=== PATIENT | male | born 1930 | race Caucasian/White ===

== ENCOUNTER 2017-02-22 12:07 | Emergency (ER) | payer OTHER ==
[~2017-02-22] VITALS: Ht 167.6 cm; Wt 73.5 kg
[~2017-02-22 12:07] MED LIST: CALCIUM 600 +1 EAC5 PO; FLONASE 0.05%50 MCG NASAL; GLIPIZIDE XL2.5 MG PO; GLUCOSAMINE CH1 EAC7 PO; HYDROCHLOROTH12.5 MG PO; IBUPROFEN 600600 M1 PO; IRON PO; LEVOTHYROXINE0.05 MG PO; LISINOPRIL20 MG PO; NEURONTIN 300300 M1 PO; NORCO 5-325 TA1 EACH PO; OCUVITE PRESER1 EACH PO; OMEPRAZOLE40 MG PO; POTASSIUM99 M1 PO; PRINZIDE 20-121 EACH PO; SIMVASTATIN20 MG PO; SUPER B-COMPLE1 EAC2 PO; VICODIN 5-5001 EACH PO; VITAMIN B-12100 MC1 PO; VITAMINC500 PO
[2017-02-22] MEDS ORDERED: PLAVIX 75 MG TA75 M1 PO (12:21)
[2017-02-22] MEDS ORDERED: NORCO 5-325 TA1 EACH PO (12:47)
[2017-02-22 13:16] VITALS: BP 181/86
== END 2017-02-22 12:48 | disposition home or self-care (01) ==
LOC: ER 12:07
DX: S42.292A Other displaced fracture of upper end of left humerus, initial encounter for closed fracture (principal); I10 Essential (primary) hypertension; E11.9 Type 2 diabetes mellitus without complications; K21.9 Gastro-esophageal reflux disease without esophagitis; E78.00 Pure hypercholesterolemia, unspecified; E03.9 Hypothyroidism, unspecified; E11.40 Type 2 diabetes mellitus with diabetic neuropathy, unspecified; F10.99 Alcohol use, unspecified with unspecified alcohol-induced disorder; Z98.890 Other specified postprocedural states; Z87.891 Personal history of nicotine dependence; W01.0XXA Fall on same level from slipping, tripping and stumbling without subsequent striking against object, initial encounter; Y93.89 Activity, other specified; Y92.008 Other place in unspecified non-institutional (private) residence as the place of occurrence of the external cause; Y99.8 Other external cause status

== ENCOUNTER 2017-07-17 20:31 | Emergency (ER) | payer OTHER ==
[~2017-07-17] VITALS: Ht 167.6 cm; Wt 68.0 kg
[~2017-07-17 20:31] MED LIST changes: +PLAVIX 75 MG TA75 M1 PO
[2017-07-17 22:39] LABS: HEMATOCRIT 26.6 % (42.0-52.0); HEMOGLOBIN 8.9 gm/dL (14.0-18.0); MCH 32.6 pg (26.0-34.0); MCHC 33.6 g/dL (28.0-37.0); MCV 96.9 fL (80.0-100.0); RBC 2.75 mil/uL (4.50-6.00); RDW 15.3 % (10.5-14.5); WBC 16.8 thou/uL (4.0-11.0)
[2017-07-17 22:46] LABS: CALCIUM 9.1 mg/dL (8.5-10.1); CREATININE 2.1 mg/dL (0.7-1.3); POTASSIUM 5.1 mmol/L (3.5-5.1)
[2017-07-17 22:51] LABS: APTT 20.9 Seconds (24.5-32.8)
[2017-07-17] MEDS ORDERED: KEFLEX500 M1 PO (23:39)
[2017-07-18 00:07] VITALS: BP 154/71
== END 2017-07-18 00:08 | disposition home or self-care (01) ==
LOC: ER 20:31
PROVIDERS: Emergency Medicine
DX: R04.0 Epistaxis (principal); I10 Essential (primary) hypertension; K21.9 Gastro-esophageal reflux disease without esophagitis; E03.9 Hypothyroidism, unspecified; E78.00 Pure hypercholesterolemia, unspecified; E11.40 Type 2 diabetes mellitus with diabetic neuropathy, unspecified; G47.30 Sleep apnea, unspecified; G25.81 Restless legs syndrome; Z86.2 Personal history of diseases of the blood and blood-forming organs and certain disorders involving the immune mechanism; Z87.891 Personal history of nicotine dependence

== ENCOUNTER 2017-07-20 16:02 | Inpatient (IN) | payer OTHER ==
[~2017-07-20] VITALS: Ht 167.6 cm; Wt 70.8 kg
--- NOTE | ~2017-07-20 | EKG ---
[address] [address] ELECTROCARDIOGRAM REPORT Name: DALTONKIRBY DAWSON Room #: 358-P ADM IN M.R.#: [id number] Admission: 07/20/17 Attend Phys: Diony Jaquez Discharge: Date of : 34 Report #: [id number] THIS REPORT FOR: //name// [facility] ED Test Date: 2017-07-20 Test Time: 18:03:06 Pat Name: KIRBY HOFFMAN Department: Room: 358 Gender: M Psych Social Worker: LILLIAN : 1930 Requested By: Brian Zimmer Order Number: [id number] MD: Fidel Melara Measurements Intervals [place] Rate: 150 P: 0 ND: QRS: -60 QRSD: 103 T: 35 QT: 349 QTc: 552 Interpretive Statements Supraventricular tachycardia with conversion to NSR Abnormal R-wave progression, late transition Inferior infarct, old No previous ECG available for comparison Electronically Signed On 07-20-2017 23:08:30 BRUSH WORKER by Fidel Melara [email or web address] <ELECTRONICALLY SIGNED> By: Fidel Melara MD 07/20/17 2308 02 02 Fidel Melara MD /MORRIS
[~2017-07-20 16:02] MED LIST changes: +KEFLEX500 M1 PO
[2017-07-20 16:55] LABS: BASOPHILS 0.4 % (0.0-2.0); EOSINOPHILS 0.3 % (0.0-3.0); LYMPHOCYTES 13.1 % (24.0-44.0); MCH 32.6 pg (26.0-34.0); MCV 96.1 fL (80.0-100.0); MONOCYTES 9.3 % (1.0-8.0); POLYS 76.9 % (36.0-66.0); RBC 1.68 mil/uL (4.50-6.00); RDW 15.6 % (10.5-14.5); WBC 9.1 thou/uL (4.0-11.0)
[2017-07-20 16:56] LABS: PLATELET COUNT 287 thou/uL (150-400)
[2017-07-20 17:01] LABS: HEMATOCRIT 16.1 % (42.0-52.0); HEMOGLOBIN 5.5 gm/dL (14.0-18.0)
[2017-07-20 17:19] LABS: ANION GAP 12 mmol/L (7-16); BUN 75 mg/dL (7-18); CALCIUM 8.5 mg/dL (8.5-10.1); CHLORIDE 104 mmol/L (98-107); CO2 22 mmol/L (21-32); GLUCOSE 205 mg/dL (74-106); POTASSIUM 5.1 mmol/L (3.5-5.1); SODIUM 138 mmol/L (136-145)
[2017-07-20 17:21] LABS: CREATININE 3.4 mg/dL (0.7-1.3)
[2017-07-20 17:28] LABS: ALBUMIN 3.3 g/dL (3.4-5.0); SGOT 14 U/L (15-37); SGPT 18 U/L (30-65); TOTAL BILIRUBIN 0.2 mg/dL (<0.1-1.0); TOTAL PROTEIN 6.5 g/dL (6.4-8.2); TROPONIN-I < 0.04 ng/mL (<0.06)
[2017-07-20 18:51] LABS: HEMATOCRIT 15.7 % (42.0-52.0); HEMOGLOBIN 5.4 gm/dL (14.0-18.0)
[2017-07-20 19:45] VITALS: BP 168/83
[2017-07-20 20:10] VITALS: BP 111/49; BP 128/49
[2017-07-20 22:46] VITALS: BP 111/49; BP 128/53; BP 132/62
[2017-07-20 23:50] VITALS: BP 132/62
[2017-07-21 01:40] LABS: URINE BILIRUBIN NEGATIVE (Negative); URINE BLOOD NEGATIVE (Negative); URINE CLARITY CLEAR; URINE COLOR YELLOW; URINE GLUCOSE-RANDOM* NEGATIVE (Negative); URINE KETONES NEGATIVE (Negative); URINE LEUKOCYTES-REFLEX NEGATIVE (Negative); URINE NITRITE-REFLEX NEGATIVE (Negative); URINE PROTEIN (DIPSTICK) NEGATIVE (Negative); URINE SPECIFIC GRAVITY 1.015 (1.005-1.035); URINE UROBILINOGEN 0.2 E.U./dl (0.2-1.0)
[2017-07-21 04:45] VITALS: BP 119/63
[2017-07-21 05:53] LABS: HEMATOCRIT 20.5 % (42.0-52.0); HEMOGLOBIN 6.9 gm/dL (14.0-18.0); MCHC 33.8 g/dL (28.0-37.0)
[2017-07-21 05:57] LABS: MCH 31.7 pg (26.0-34.0); MCV 93.7 fL (80.0-100.0); RBC 2.19 mil/uL (4.50-6.00); RDW 15.1 % (10.5-14.5); WBC 6.5 thou/uL (4.0-11.0)
[2017-07-21 06:04] LABS: CALCIUM 7.7 mg/dL (8.5-10.1); POTASSIUM 4.6 mmol/L (3.5-5.1)
[2017-07-21 06:06] LABS: ALBUMIN 2.8 g/dL (3.4-5.0); PHOSPHORUS 3.9 mg/dL (2.5-4.9)
[2017-07-21 06:16] LABS: CREATININE 2.3 mg/dL (0.7-1.3)
[2017-07-21 08:03] VITALS: BP 147/37
[2017-07-21 10:28] VITALS: BP 137/53; BP 147/71
[2017-07-21 11:05] VITALS: BP 129/53
[2017-07-21 15:11] VITALS: BP 121/54
[2017-07-21 19:35] VITALS: BP 160/65
[2017-07-22 03:50] VITALS: BP 136/65
[2017-07-22 05:43] LABS: HEMATOCRIT 24.3 % (42.0-52.0); HEMOGLOBIN 8.5 gm/dL (14.0-18.0); MCH 32.2 pg (26.0-34.0); MCHC 34.9 g/dL (28.0-37.0); MCV 92.3 fL (80.0-100.0); RBC 2.63 mil/uL (4.50-6.00); RDW 15.2 % (10.5-14.5); WBC 5.7 thou/uL (4.0-11.0)
[2017-07-22 06:01] LABS: ALBUMIN 2.9 g/dL (3.4-5.0); CALCIUM 8.4 mg/dL (8.5-10.1); CREATININE 1.8 mg/dL (0.7-1.3); PHOSPHORUS 3.4 mg/dL (2.5-4.9); POTASSIUM 4.7 mmol/L (3.5-5.1)
[2017-07-22 08:00] VITALS: BP 186/80
[2017-07-22 15:45] VITALS: BP 177/86
[2017-07-22 16:18] VITALS: BP 177/86
== END 2017-07-22 16:36 | disposition home or self-care (01) | DRG 150 ==
LOC: ER 16:02 → EROBS 17:59 → 3W 17:59 → ENTRNSPT 07-22 16:30 → 3W 07-22 16:36
PROVIDERS: Emergency Medicine; Hospitalist
PROC: 30233N1 Transfusion of Nonautologous Red Blood Cells into Peripheral Vein, Percutaneous Approach (ICD-10-PCS; principal; 2017-07-20)
DX: R04.0 Epistaxis (principal); N17.0 Acute kidney failure with tubular necrosis; D62 Acute posthemorrhagic anemia; I47.1 Supraventricular tachycardia; I10 Essential (primary) hypertension; K21.9 Gastro-esophageal reflux disease without esophagitis; E03.9 Hypothyroidism, unspecified; D64.9 Anemia, unspecified; G25.81 Restless legs syndrome; E11.40 Type 2 diabetes mellitus with diabetic neuropathy, unspecified; Z98.42 Cataract extraction status, left eye; Z98.41 Cataract extraction status, right eye; Z87.891 Personal history of nicotine dependence; Z79.899 Other long term (current) drug therapy
CPT/HCPCS: 10779

== ENCOUNTER 2019-08-28 18:10 | Emergency (ER) | payer OTHER ==
[~2019-08-28] VITALS: Ht 167.6 cm; Wt 77.1 kg
[2019-08-28 20:55] LABS: URINE BILIRUBIN NEGATIVE (Negative); URINE BLOOD NEGATIVE (Negative); URINE CLARITY CLEAR; URINE COLOR YELLOW; URINE GLUCOSE-RANDOM* NEGATIVE (Negative); URINE KETONES NEGATIVE (Negative); URINE LEUKOCYTES-REFLEX TRACE (Negative); URINE NITRITE-REFLEX NEGATIVE (Negative); URINE PROTEIN (DIPSTICK) 2+ (Negative); URINE SPECIFIC GRAVITY >= 1.030 (1.005-1.035); URINE UROBILINOGEN 0.2 E.U./dl (0.2-1.0)
[2019-08-28 21:06] LABS: BACTERIA-REFLEX 1-9 Few /HPF (None Seen); CASTS None Seen /LPF (None Seen); CRYSTALS None Seen /LPF (None Seen); SQUAMOUS None Seen /LPF (0-3); URINE RBC None Seen /HPF (0-2); URINE WBC-REFLEX 6-15 Few /HPF (0-5)
[2019-08-28 21:07] LABS: ABSOLUTE NEUTROPHILS 5.5 thou/uL (1.4-8.2); BASOPHILS 0.7 % (0.0-2.0); EOSINOPHILS 0.8 % (0.0-3.0); HEMATOCRIT 34.5 % (42.0-52.0); HEMOGLOBIN 11.7 gm/dL (14.0-18.0); LYMPHOCYTES 18.5 % (24.0-44.0); MCH 31.5 pg (26.0-34.0); MCHC 33.8 g/dL (28.0-37.0); MCV 93.2 fL (80.0-100.0); MONOCYTES 11.7 % (1.0-8.0); PLATELET COUNT 343 thou/uL (150-400); POLYS 68.3 % (36.0-66.0); RBC 3.71 mil/uL (4.50-6.00); RDW 12.8 % (10.5-14.5); WBC 8.1 thou/uL (4.0-11.0)
[2019-08-28 21:20] LABS: CALCIUM 9.3 mg/dL (8.5-10.1); CREATININE 2.7 mg/dL (0.7-1.3); POTASSIUM 4.5 mmol/L (3.5-5.1)
[2019-08-28 21:25] LABS: TOTAL BILIRUBIN 0.2 mg/dL (<0.1-1.0); TOTAL PROTEIN 8.3 g/dL (6.4-8.2)
[2019-08-28] MEDS ORDERED: KEFLEX500 M1 PO (21:37)
[2019-08-28 21:47] VITALS: BP 127/67
[2019-08-28] MEDS ORDERED: LEVO-T75 MCG PO (21:50)
[2019-08-28] MEDS ORDERED: GLIPIZIDE ER2.5 MG PO (21:50)
[2019-08-28] MEDS ORDERED: PLAVIX 75 MG TA75 MG PO (21:51)
[2019-08-28] MEDS ORDERED: TRADJENTA5 MG (21:51)
[2019-08-28] MEDS ORDERED: MEMANTINE HCL10 MG PO (22:02)
[2019-08-28] MEDS ORDERED: DILTIAZEM 24HR180 M1 PO (22:03)
[2019-08-28] MEDS ORDERED: PANTOPRAZOLE SO40 M1 PO (22:03)
[2019-08-28] MEDS ORDERED: CILOSTAZOL 100100 M1 PO (22:03)
[2019-08-28] MEDS ORDERED: ATORVASTATIN CA20 MG PO (22:03)
[2019-08-28] MEDS ORDERED: ARICEPT10 M1 PO (22:03)
[2019-08-28] MEDS ORDERED: LISINOPRIL2.5 MG PO (22:04)
== END 2019-08-28 22:05 | disposition home or self-care (01) ==
LOC: ER 18:10
PROVIDERS: Emergency Medicine
DX: N39.0 Urinary tract infection, site not specified (principal); I10 Essential (primary) hypertension; E11.9 Type 2 diabetes mellitus without complications; E78.00 Pure hypercholesterolemia, unspecified; E03.9 Hypothyroidism, unspecified; K21.9 Gastro-esophageal reflux disease without esophagitis; G47.30 Sleep apnea, unspecified; G25.81 Restless legs syndrome; Z86.2 Personal history of diseases of the blood and blood-forming organs and certain disorders involving the immune mechanism; Z87.891 Personal history of nicotine dependence

== ENCOUNTER 2020-10-06 17:58 | Inpatient (IN) | payer OTHER ==
[~2020-10-06] VITALS: Ht 167.6 cm; Wt 72.8 kg
[~2020-10-06 17:58] MED LIST changes: +ARICEPT10 M1 PO; +ATORVASTATIN CA20 MG PO; +CILOSTAZOL 100100 M1 PO; +DILTIAZEM 24HR180 M1 PO; +GLIPIZIDE ER2.5 MG PO; +LEVO-T75 MCG PO; +LISINOPRIL2.5 MG PO; +MEMANTINE HCL10 MG PO; +PANTOPRAZOLE SO40 M1 PO; +PLAVIX 75 MG TA75 MG PO; +TRADJENTA5 MG
[2020-10-06 18:04] VITALS: BP 134/62
[2020-10-06] MEDS ORDERED: NAMENDA 10 MG T10 MG PO (18:53)
[2020-10-06 18:57] LABS: ABSOLUTE NEUTROPHILS 4.4 thou/uL (1.4-8.2); BASOPHILS 0.6 % (0.0-2.0); HEMATOCRIT 29.2 % (42.0-52.0); HEMOGLOBIN 9.9 gm/dL (14.0-18.0); LYMPHOCYTES 14.8 % (24.0-44.0); MCH 32.8 pg (26.0-34.0); MCHC 33.9 g/dL (28.0-37.0); MCV 96.7 fL (80.0-100.0); MONOCYTES 8.8 % (1.0-8.0); PLATELET COUNT 240 thou/uL (150-400); POLYS 73.8 % (36.0-66.0); RBC 3.02 mil/uL (4.50-6.00); RDW 14.3 % (10.5-14.5); WBC 5.9 thou/uL (4.0-11.0)
[2020-10-06] MEDS ORDERED: ALLOPURINOL 10100 M3 PO (18:57)
[2020-10-06 19:03] LABS: ANION GAP 16 mmol/L (7-16); BUN 76 mg/dL (7-18); CALCIUM 9.1 mg/dL (8.5-10.1); CHLORIDE 106 mmol/L (98-107); CO2 18 mmol/L (21-32); GLUCOSE 160 mg/dL (74-106); SODIUM 140 mmol/L (136-145)
[2020-10-06 19:07] LABS: POTASSIUM 6.1 mmol/L (3.5-5.1)
[2020-10-06 19:13] LABS: ALBUMIN 3.9 g/dL (3.4-5.0); SGOT 15 U/L (15-37); SGPT 25 U/L (16-63); TOTAL BILIRUBIN 0.3 mg/dL (0.2-1.0); TROPONIN-I <0.06 ng/mL (<0.06)
[2020-10-06 20:18] VITALS: BP 130/63
[2020-10-06 20:19] LABS: URINE BILIRUBIN NEGATIVE (Negative); URINE BLOOD NEGATIVE (Negative); URINE CLARITY CLEAR; URINE COLOR YELLOW; URINE GLUCOSE-RANDOM* NEGATIVE (Negative); URINE KETONES NEGATIVE (Negative); URINE LEUKOCYTES-REFLEX NEGATIVE (Negative); URINE NITRITE-REFLEX NEGATIVE (Negative); URINE PROTEIN (DIPSTICK) TRACE (Negative); URINE SPECIFIC GRAVITY 1.025 (1.005-1.035); URINE UROBILINOGEN 0.2 E.U./dl (0.2-1.0)
--- NOTE | 2020-10-06 20:30 | NUR ---
Called to give report but was told RN will call me soon
[2020-10-06 20:46] VITALS: BP 141/67
[2020-10-06 21:11] VITALS: BP 143/64
--- NOTE | 2020-10-06 23:17 | NUR ---
PT ADMITTED FROM [facility] TO ER FOR C/O SHAKINESS, S/P FALL AND WEAKNESS. DX ACUTE RENAL FAILURE, HYPERKALEMIA, AND ANEMIA. PT IS A&OX4 BUT VERY CITIZEN [place]. HEARING AIDES HELP SOMEWHAT. INSTUCTED PT ON FALL PRECAUTIONS. BED ALARM IS ON. HE AMBULATES TO WITH 1 PERSON ASSISTANCE. GAIT SEEMS STEADY AND NO SHAKINESS NOTED PRESENTLY. VSS AFEBRILE. SR ON MONITOR WITH 1' AVB. NO C/O PAIN. NS STARTED R FA AT 80 ML/HR. PT HAS HAD 1 LG LIQUID LOOSE STOOL AFTER KAYEXOLATE.
[2020-10-06 23:51] VITALS: BP 115/47
[2020-10-07] VITALS: BP 128/62
[2020-10-07 04:26] VITALS: BP 132/66
[2020-10-07 04:43] LABS: CALCIUM 8.2 mg/dL (8.5-10.1); CREATININE 3.6 mg/dL (0.7-1.3)
[2020-10-07 05:10] LABS: POTASSIUM 4.7 mmol/L (3.5-5.1)
--- NOTE | 2020-10-07 06:57 | EKG ---
[address] [place] [address] ELECTROCARDIOGRAM REPORT Name: KIRBY HOFFMAN Room #: 362-P ADM IN M.R.#: [id number] Admission: 10/06/20 Attend Phys: Gilles Malloy MD Discharge: Date of : 32 Report #: [id number] [facility] ED Test Date: 2020-10-06 Test Time: 19:10:49 Pat Name: KIRBY HOFFMAN Department: Room: 362 Gender: M Mechanical Research Engineer: BOBBY : 1930 Requested By: Preethi Greco Order Number: [id number] MD: Jasen Acosta Measurements Intervals [place] Rate: 68 P: 21 AK: 199 QRS: -50 QRSD: 100 T: 5 QT: 411 QTc: 438 Interpretive Statements Sinus rhythm Atrial premature complex Left anterior fascicular block Abnormal R-wave progression, early transition Compared to ECG 07/20/2017 18:03:06 Atrial premature complex(es) now present Left anterior fascicular block now present Supraventricular tachycardia no longer present Myocardial infarct finding no longer present Electronically Signed On 10-07-2020 6:57:18 CDT by Jasen Acosta [email or web address] <ELECTRONICALLY SIGNED> By: Jasen Acosta MD, [facility] 10/07/20 0657 09 09 Jasen Acosta MD, [facility] /EPI
[2020-10-07 07:06] VITALS: BP 130/62
[2020-10-07 07:29] VITALS: BP 157/69
--- NOTE | 2020-10-07 07:29 | NUR ---
PT PROGRESSING TOWARDS D/C GOALS. VSS AFEBRILE. NO SHAKING OR TREMORS NOTED TONIGHT. COMPLIANT WITH FALL PRECAUTIONS. BED ALARM IS ON. INSTRUCTED PT TO SAVE URINE IN URINAL FOR ACCURATE I&O.
--- NOTE | 2020-10-07 10:44 | NUR ---
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 denies any chest pain, nausea and vomitting pt taken down for renal ultrasound. pt uses urinal and up with 1 assist to bathroom. fall precautions in place. will continue to monitor.
[2020-10-07 11:28] LABS: URINE BILIRUBIN NEGATIVE (Negative); URINE BLOOD 2+ (Negative); URINE CLARITY CLEAR; URINE COLOR YELLOW; URINE GLUCOSE-RANDOM* NEGATIVE (Negative); URINE KETONES NEGATIVE (Negative); URINE LEUKOCYTES NEGATIVE (Negative); URINE NITRITE NEGATIVE (Negative); URINE PROTEIN (DIPSTICK) TRACE (Negative); URINE UROBILINOGEN 0.2 E.U./dl (0.2-1.0)
[2020-10-07 11:30] LABS: URINE CREATININE-RANDOM* 72.7 mg/dL; URINE PROTEIN-RANDOM* 31.2 mg/dL (<11.9)
--- NOTE | 2020-10-07 11:32 | 2DMMODE ---
[facility] [place] [address] 2 D/M-MODE ECHOCARDIOGRAM Name: KIRBY HOFFMAN Room #: 362-P ADM IN M.R.#: [id number] Admission: 10/06/20 Attend Phys: Cadence Lara MD Discharge: Date of : 32 Report #: [id number] THIS REPORT FOR: cc: MARKEL LANE Physician not on staff Ernst Manrique MD [facility] ~ APPROVED REPORT Study performed: 10/07/2020 10:26:20 EXAM: Comprehensive 2D, Doppler, and color-flow Echocardiogram Room #: 362 Status: routine BSA: 1.80 HR: 71 bpm BP: 130/62 mmHg Rhythm: NSR Other Information Study Quality: Good Indications Diabetes Syncope Hypertension/HDD 2D Dimensions RVDd: 33.57 mm IVSd: 9.83 (7-11mm) LVOT Diam: 21.48 (18-24mm) LVDd: 56.98 mm PWd: 10.12 (7-11mm) Ascending Ao: 32.84 (22-36mm) LVDs: 39.15 (25-40mm) Aortic Root: 34.63 mm IVC: 18.00 mm Volumes Left Atrial Volume (Systole) Single Plane 4CH: 46.88 mL Single Plane 2CH: 30.85 mL LA ESV Index: 22.00 mL/m2 Aortic Valve AoV Peak David.: 2.64 m/s AO Peak Gr.: 27.96 mmHg LVOT Max P.16 mmHg AO Mean Gr.: 15.65 mmHg LVOT Mean P.27 mmHg AO V2 Mean: 1.85 m/s LVOT Max V: 1.23 m/s AO V2 VTI: 63.20 cm LVOT Mean V: 0.83 m/s [facility] [address] [place] [address] 2 D/M-MODE ECHOCARDIOGRAM Name: KIRBY HOFFMAN Room #: 362-P [facility] IN ..#: [id number] Admission: 10/06/20 Attend Phys: Kristan Benites Discharge: Date of : 32 Report #: [id number] FABRIZIO (VTI): 1.65 cm2 LVOT V1 VTI: 28.84 cm FABRIZIO Vmax: 1.68 cm2 SV (LVOT): 104.50 mL Mitral Valve E/A Ratio: 0.8 MV Decel. Time: 205.74 ms MV E Max David.: 0.89 m/s MV A David.: 1.13 m/s MV PHT: 59.67 ms IVRT: 129.18 ms Pulmonary Valve PV Peak David.: 1.00 m/s PV Peak Gr.: 4.01 mmHg Pulmonary Vein P Vein S: 0.71 m/s P Vein A: 0.27 m/s P Vein D: 0.39 m/s P Vein A Dur.: 106.1 msec P Vein S/D Ratio: 1.82 Tricuspid Valve TR Peak David.: 3.10 m/s TR Peak Gr.: 38.33 mmHg PA Pressure: 43.00 mmHg Left Ventricle The left ventricle is normal size. There is normal LV segmental wall motion. There is normal left ventricular wall thickness. The left ventricular systolic function is normal. The left ventricular ejection fraction is within the normal range. LVEF 60%. Mild diastolic dysfunction Right Ventricle The right ventricle is normal size. The right ventricular systolic function is normal. Atria The left atrium size is normal. The right atrium size is normal. Aortic Valve The aortic valve is mildly calcified, mildly stenotic. Trace aortic regurgitation. Mild aortic stenosis. Calculated aortic valve area is 1.6 cm2 with maximum pressure gradient of 27 mmHg and mean pressure gradient of 14 mmHg. [facility] [address] [place] [address] 2 D/M-MODE ECHOCARDIOGRAM Name: KIRBY HOFFMAN Room #: 362-P [facility] IN .R.#: [id number] Admission: 10/06/20 Attend Phys: Kristan Benites Discharge: Date of : 32 Report #: [id number] Mitral Valve Mild mitral annular calcification Mild mitral regurgitation. No evidence of mitral valve stenosis. Tricuspid Valve The tricuspid valve is normal in structure. There is trace tricuspid regurgitation. Estimated PAP 43 mmHg. Pulmonic Valve The pulmonary valve is normal in structure. There is no pulmonic valvular regurgitation. Great Vessels The aortic root is normal in size. IVC is normal in size and collapses >50% with inspiration. Pericardium There is no pericardial effusion. <Conclusion> The left ventricular systolic function is normal. There is normal LV segmental wall motion. LVEF 60%. Mild diastolic dysfunction The aortic valve is mildly calcified, mildly stenotic. Mild stenosis and insufficiency Calculated aortic valve area is 1.6 cm2 (Peak gradient of 27 mmHg, mean pressure gradient of 14 mmHg). Mild mitral annular calcification. Mild mitral regurgitation. There is trace tricuspid regurgitation. Estimated pulmonary artery pressure of 43 mmHg. There is no pericardial effusion. <ELECTRONICALLY SIGNED> By: Ernst Manrique MD, FACC 10/07/20 113 31 113 Ernst Manrique MD, FACC /INF
[2020-10-07 12:38] LABS: CASTS None Seen /LPF (None Seen); SQUAMOUS None Seen /LPF (0-3); URINE RBC 0-2 Rare /HPF (0-2); URINE WBC 0-5 Rare /HPF (0-5)
[2020-10-07 12:39] LABS: BACTERIA 1-9 Few /HPF (None Seen); CRYSTALS None Seen /LPF (None Seen)
--- NOTE | 2020-10-07 14:56 | NUR ---
INITIAL ASSESSMENT: Received consult for discharge planning. DAX reviewed chart and spoke with nursing and attending physician. Pt was admitted from home due to acute renal failure. Pt with recent fall at home. Cardio consult ordered. PT/OT ordered today to evaluate pt for discharge needs. DAX met with pt at bedside. Introduced role of DAX. Pt is [facility]. Pt reports he lives at home alone. Prior to admission, pt was independent with ADLs. Pt states he has a cane to use if needed. No hx of HH services or post-acute placement. Pt's PCP is Dr. Telly Conte. DAX discussed discharge needs: placement v. HH. Pt states he does not think he will need either. Pt gave consent for DAX to contact his friend, Rosy, who assists pt as needed. DAX left voice message for Rosy. DAX is following to assist as needed with discharge planning.
[2020-10-07 15:28] VITALS: BP 134/68
[2020-10-07 20:18] VITALS: BP 141/71
[2020-10-08 02:06] LABS: GLYCOHEMOGLOBIN (HGB A1C) 7.3 % (4.8-5.6)
[2020-10-08 04:29] VITALS: BP 162/69
--- NOTE | 2020-10-08 06:41 | NUR ---
PT IS UP TO BATHROOM WITH SBA. VSS OVERNIGHT. PT IS VERY IMPULSIVE AND NEEDS BED ALARM ON. PT REMOVED 1 PIV. STARTED NEW IV SITE IN RIGHT UPPER FOREARM.
[2020-10-08 07:33] VITALS: BP 176/74
[2020-10-08 08:17] LABS: ALBUMIN 3.8 g/dL (3.4-5.0); CALCIUM 8.5 mg/dL (8.5-10.1); CREATININE 2.7 mg/dL (0.7-1.3); PHOSPHORUS 3.4 mg/dL (2.6-4.7); POTASSIUM 4.7 mmol/L (3.5-5.1)
[2020-10-08 09:30] VITALS: BP 153/67
[2020-10-08 11:42] VITALS: BP 143/61
--- NOTE | 2020-10-08 12:20 | NUR ---
CARE ASSUMNED AT 0700, PT ALERT AND ORIENTED X4, DEMENTED AND FORGETFUL. IMPULSIVE AT TIMES. PT REDIRECTED AND EDUCATED ABOUT USING CALL LIGHT. FALL PRECAUTIONS IN PLACE. ANTICIPATING FOR DISCHARGE TO A SKILLED FACILITY. WILL CONTINUE TO MONITOR.
--- NOTE | 2020-10-08 13:52 | NUR ---
DAX reviewed chart and spoke with nursing and attending physician. Discharge order entered. Recommendation made for pt to go to SNF. DAX met with pt's DPOA, Rosy, to discuss discharge plan. Rosy provides assistance to pt almost on a daily basis and has been working on finding pt an AL facility. Rosy has contacted [facility] and would like pt to eventually move into AL. Rosy is agreeable with SNF placement pending insurance authorization. In-network SNF list provided to Rosy for review. [facility]. DAX explained process for admission to SNF then transition to AL. Pt has not received his COVID vaccinations. Rosy is aware that pt is medically stable for discharge pending SNF acceptance and insurance auth. DAX faxed referral to [facility] and spoke with Justin liaison. Pt will need a COVID test prior to admission to their skilled unit. DAX updated nursing and attending physician. Order for COVID test to be entered. DAX contacted [facility] to assist with SNF authorization process. DAX is following to assist as needed with discharge planning.
[2020-10-08 17:06] VITALS: BP 156/66
[2020-10-08 19:40] VITALS: BP 157/57
[2020-10-09 04:14] VITALS: BP 181/78
[2020-10-09 05:57] LABS: ALBUMIN 3.3 g/dL (3.4-5.0); CALCIUM 8.6 mg/dL (8.5-10.1); CREATININE 2.3 mg/dL (0.7-1.3); PHOSPHORUS 3.1 mg/dL (2.5-4.9); POTASSIUM 4.7 mmol/L (3.5-5.1)
--- NOTE | 2020-10-09 07:31 | NUR ---
PT VSS OVERNIGHT. BED ALARM IS A MUST PT IS VERY IMPULSIVE,FORGETFULL AND WILL EXIT BED WITHOUT ASSISTANCE. IVF 1/2NS AT 100. HOURLY ROUNDING.
[2020-10-09 08:04] VITALS: BP 176/88
[2020-10-09 08:13] VITALS: BP 106/79
[2020-10-09] MEDS ORDERED: METOPROLOL TART25 MG PO (11:40)
--- NOTE | 2020-10-09 14:58 | NUR ---
DAX reviewed chart and spoke with nursing and attending physician. Pt is medically stable for discharge to [facility] today pending insurance auth. production planner faxed COVID test results and updates to [facility] for review. DAX updated Jogli. Awaiting auth at this time. Pt is able to be transported via w/c van when discharged. Chart copy requested. DAX is following to assist as needed with discharge planning.
[2020-10-09 15:59] VITALS: BP 163/62
--- NOTE | 2020-10-09 17:01 | NUR ---
WAS NOTIFIED BY AUSTEN IN ADM AT [facility] THAT AUTH HAS BEEN DENIED FOR SKILLED STAY THAT A PEER TO PEER CAN BE DONE AVAILABLE TOMORROW BY NOON CALL [phone] SENT MSG TO UR TO SEE IF PHYSICIAN WILL DO PEER TO PEER.
--- NOTE | 2020-10-09 19:16 | NUR ---
PLEASANT WITH CARE. RESTED IN BED AND MOVES AROUND THE ROOM WITH MINIMAL ASSIST. WILL CONT WITH PLAN OF CARE.
[2020-10-09 19:32] VITALS: BP 160/72
[2020-10-10 03:58] VITALS: BP 174/48
--- NOTE | 2020-10-10 04:23 | NUR ---
Patient has progressed towards outcome goals. Has d/c orders awaiting insurance approval. Vital signs and rhythm stable. High fall risks, fall precautions in place.
[2020-10-10 09:30] VITALS: BP 186/72
[2020-10-10 14:50] VITALS: BP 173/68
--- NOTE | 2020-10-10 15:36 | NUR ---
DAX reviewed chart and spoke with nursing and attending physician. Discharge orders/summary finalized. Pt's insurance denied SNF admission. Peer to peer review was completed by attending physician with Dr. Barber at [facility]. Denial upheld. DAX spoke with pt's DPOA, Rosy, via phone to provide update and discuss discharge plan. Rosy put down a deposit on an apt at [facility] this morning. However, the apt is not ready for pt to move into yet. Rosy states that she cannot stay with pt 24 hours and knows that he needs more supervision than HH can provide. DAX discussed pt going to [facility] SNF/LTC as private pay. Rosy will consider, but wants to speak to the physician regarding pt's medical condition. DAX provided attending physician with Rosy's contact info. DAX discussed case with [place] liaison, who discussed private pay rates with Rosy. Awaiting input from [facility] if they have a respite apt available for pt over the weekend. Pt is not ready for discharge today per attending due to cardiac issues. DAX followed up with Rosy to discuss discharge plan. Rosy states that at this point, she will consider having pt return home with HH. Rosy states she can check on pt throughout the day. Rosy requests a HH referral to be sent to [facility]. DAX faxed referral to [facility] and spoke with Sally in intake to notify of new referral and possible weekend discharge. Finalized discharge orders/summary will need to faxed to [facility] when available. DAX is following to assist as needed with discharge planning. [facility]--
--- NOTE | 2020-10-10 17:04 | NUR ---
PT WAS TO DISCHARGE TODAY, BUT UNABLE TO D/T SUDDEN ASYSTOLE FOR 4.8SEC METOPROLOL HAS BEEN DC'D TO BE MONITORED OVER NIGHT FOR CHANGE IN STATUS PT REMAINS ON [employer] TELEMETRY MONITORING. PT HAS BEEN SLEEPING FOR MAJORITY OF THE DAY, VERY FORGETFUL AND IMPULSIVE.
[2020-10-10 20:30] VITALS: BP 167/65
[2020-10-11 05:53] VITALS: BP 147/67
--- NOTE | 2020-10-11 07:45 | NUR ---
PROGRESS PT ALERT BUT SLIGHTLY CONFUSED VSS, TELE INTACT SLEPT MOST OF SHIFT CONTINUE POC.
[2020-10-11 07:51] VITALS: BP 143/69
[2020-10-11 11:30] VITALS: BP 135/61
[2020-10-11 15:34] VITALS: BP 149/71
--- NOTE | 2020-10-11 18:20 | NUR ---
PATIENT NOW SLEEPING AND RESPIRATONS ARE EVEN NON LABORED. HE IS UP TO BATHROOM WITH STANDBY ASSIST. WILL CONT WITH PLAN OF CARE.
[2020-10-11 20:00] VITALS: BP 146/62
[2020-10-12 07:54] VITALS: BP 177/90
[2020-10-12 11:05] VITALS: BP 155/105
[2020-10-12 15:37] VITALS: BP 146/70
--- NOTE | 2020-10-12 18:35 | NUR ---
ASSUMED CARE FOR PT AT DAY SHIFT CHANGE. PT IS EXTREMELY ALGAACIQ, AUTHORIZED CONTACT BROUGHT UP NEW BATTERIES FOR BILAT HEARING AIDS. PT IS ABLE TO USE URINAL SITTING AT BEDSIDE INDEPENDENTLY. ONE DOSE OF PRN HYDRALAZINE GIVEN TO PT FOR HIGH SBP THIS MORNING.
[2020-10-12 19:27] VITALS: BP 151/72
[2020-10-13 03:54] VITALS: BP 147/62
--- NOTE | 2020-10-13 05:43 | NUR ---
PROGRESS PT UP AD RAD GAIT STEADY USES CANE. VSS, DENIES PAIN OR NEED FOR ANYTHING. CALLS FOR ASSIST WHEN TOLIETING. DENIES PAIN. TELE INTACT READING SR WITH 94% WEARING BIPAP AT NIGHT CONTINUE POC.
[2020-10-13 07:57] VITALS: BP 145/68
--- NOTE | 2020-10-13 09:08 | NUR ---
ASSUMED PT CARE AT SHIFT CHANGE. PT HAS HEARING AIDS IN. PT NOW NPO FOR EVAL FOR PACEMAKER PLACEMENT. CONSULT CALLED BY THIS RN. PT IS HOPING TO GO HOME APPLE.
[2020-10-13 11:24] VITALS: BP 161/74
[2020-10-13 12:27] LABS: ABSOLUTE NEUTROPHILS 5.1 thou/uL (1.4-8.2); BASOPHILS 0.4 % (0.0-2.0); EOSINOPHILS 0.7 % (0.0-3.0); HEMATOCRIT 32.3 % (42.0-52.0); HEMOGLOBIN 10.8 gm/dL (14.0-18.0); LYMPHOCYTES 14.9 % (24.0-44.0); MCH 32.2 pg (26.0-34.0); MCHC 33.5 g/dL (28.0-37.0); MCV 96.3 fL (80.0-100.0); MONOCYTES 8.5 % (1.0-8.0); PLATELET COUNT 241 thou/uL (150-400); POLYS 75.5 % (36.0-66.0); RBC 3.36 mil/uL (4.50-6.00); WBC 6.7 thou/uL (4.0-11.0)
[2020-10-13 12:48] LABS: CALCIUM 9.1 mg/dL (8.5-10.1); CREATININE 2.4 mg/dL (0.7-1.3); POTASSIUM 4.1 mmol/L (3.5-5.1)
--- NOTE | 2020-10-13 13:13 | NUR ---
PT OFF UNIT FOR PROCEDURE
--- NOTE | 2020-10-13 13:50 | NUR ---
DAX reviewed chart and spoke with nursing and attending physician. Cardiology consulted. Pt may need a pacemaker to be placed. DAX spoke with Sally in intake at [facility], to provide update. [facility] is able to accept pt on service upon discharge. DAX received message from pt's DPOA, Rosy, asking if insurance might authorize SNF following pacemaker placement. DAX returned call to Rosy and left a voice message. DAX provided update to [facility] liaison as well. Rosy may be able to arrange additional in-home care for pt if he discharges home with . His apt at [facility] is not ready yet. DAX is following to assist as needed with discharge planning.
--- NOTE | 2020-10-13 14:54 | NUR ---
TRANSFERRED PT BELONGINGS TO ROOM 210
--- NOTE | 2020-10-13 14:56 | NUR ---
UPDATED DPOA MITZY TO PT ROOM CHANGE
[2020-10-13 15:45] VITALS: BP 150/66
--- NOTE | 2020-10-13 18:36 | NUR ---
ASSUMED CARE OF PT THIS AFTERNOON POST PACEMAKER PLACEMENT. PT TRANSFERRED FROM 3W PRIOR TO PM PLACEMENT. ASSESSMENT CHARTED. MEDS GIVEN PER SEP. INCISION IN UPPER LEFT CHEST, INTACT W/O HEMATOMA, REDNESS OR DRAINAGE. NO C/O PAIN. WILL CONTINUE TO MONITOR FOR CHANGES AND FOLLOW POC.
[2020-10-13 19:15] VITALS: BP 140/63
[2020-10-14] VITALS (7 sets, daily range): BP systolic 137–173; BP diastolic 47–77
[2020-10-14] MEDS ORDERED: METOPROLOL SUCC50 MG PO (10:51)
[2020-10-14] MEDS ORDERED: CARDIZEM LA240 M1 PO (10:51)
[2020-10-14] MEDS ORDERED: HYDRALAZINE 2525 M1 PO (10:52)
--- NOTE | 2020-10-14 11:13 | NUR ---
DAX reviewed chart and spoke with nursing and attending physician. Pt had pacemaker placed yesterday and transferred to CCU. DAX spoke with pt's DPOA, Rosy, via phone to discuss discharge plan. Pt's AL apt at [facility] is being prepared for pt to move in. DAX discussed options for discharge with Rosy. Rosy requests to resubmit info to insurance to see if they would authorize SNF, now that pt has remained in the hospital and had pacemaker placed. DAX updated [facility] liaison, who states they will resubmit. DAX faxed updates to [facility] for review. Awaiting updated therapy evals/notes to fax to [facility]. Will need insurance auth for skilled placement. DAX contacted therapy mgr to have pt seen early today. Will need repeat COVID test. DAX notified pt's nurse to have test ordered and completed today. DAX is following to assist as needed with discharge planning.
--- NOTE | 2020-10-14 18:01 | NUR ---
RECEIVED PT'S CARE AROUND 0725; PT. ON BED; RESTING WITH EYES CLOSED; PACED ON THE MONITOR; DURING AM ASSESSMENT PT. AOX4; FORGETFUL THROUGH THE DAY; EDUCATED ABOUT CALLING BEFORE GETTING UP FROM BED; NEEDS TO BE REMAINED ABOUT IT; IMPULSIVE; HAD A BM DURING THE DAY; URGENCY; UP TO THE RESTHROOM; PER DR. MARTIR FLORES TO BE D/C; LICENSING REGISTRATION EXAMINER NOTIFIED; WAITING ON PLACEMENT; COVID TEST SEND; BG ON THE 160s AT LUNCH AND 200s DURING DINNER; PHYSICIAN NOTIFIED; ORDERS ON PLACED; ASSESSMENT CHARGED; FOLLOWING POC; WILL PASS ON REPORT;
[2020-10-15 05:54] VITALS: BP 176/76
--- NOTE | 2020-10-15 07:14 | NUR ---
PATIENTS CARES WERE ASSUMED AT SHIFT CHANGE. PATIENT WAS ASSESSED AND MEDS WERE PASSED. PATIENT DID SLEEP MOST OF THIS SHIFT. BOTH HEARING AIDES ARE AT THE BEDSIDE. UNEVENTFUL NIGHT. NO PATIENT REQUESTS ROUNDS WERE DONE
[2020-10-15 08:00] VITALS: BP 169/69
[2020-10-15 09:00] VITALS: BP 160/69
[2020-10-15 12:14] VITALS: BP 144/58
--- NOTE | 2020-10-15 15:48 | NUR ---
FAXED CLINICAL UPDATE INCLUDING TODAY'S PT/OT NOTES TO [facility] SPOKE WITH AUSTEN SHE RECEIVED NOTES AND SUBMITTED THEM FOR AUTH.
[2020-10-15 16:00] VITALS: BP 133/55
[2020-10-15 19:27] VITALS: BP 128/53
[2020-10-16] VITALS (7 sets, daily range): BP systolic 128–175; BP diastolic 50–81
--- NOTE | 2020-10-16 07:58 | NUR ---
PATIENTS CARE WAS ASSUMED AT SHIFT CHANGE. PATIENT WA ASSESSED AND MEDS WERE PASSED. PATIENT IS VERY CONFUSED AND IS UP WITH ONE. PATIENT IS DOING WELL AFTER TREATMENT AND IS PROGRESSING TO DISCHARGE STATUS. ROUNDS WERE DONE. THE BED IS IN A LOW AND LOCKED POSITION
--- NOTE | 2020-10-16 17:06 | NUR ---
[facility] SNF liason called this am indicating that [facility] has denied their SNF request and declined peer to peer. They only offered appeal process. Care team updated. PT's DPOA Rosy updated as well and she is interested in appealing their decision. She will call the ins plan. Options for 24hr care discussed along with care team recommendations for 24h care. The [facility] is calling her to review cost for private pay placement with part B therapy treatment, memory care [facility] and respite at their Indep living with personal care services. These will be less costly than 24/7 care in the home. Pt's dpoa is not able to provide 24hr care in the home. She notes that she has been working with [facility] on [facility] apt for him in a week or two but uncertain if he will quailfy based on his current level of care needs. She will f/u once she has talked with the ins plan and [facility] about options. PT is dc ready. Therapy is recommending a rwalker at dc and the pt does not have one at home. Will follow up with all parties in the am.
--- NOTE | 2020-10-16 18:25 | NUR ---
PT CARE ASSUMED AT SHIFT CHANGE. A&OX3 DURING THE SHIFT. TOOK ALL MEDS ORDERED. UP WITH PT AND OT. GAIT IS UNSTEADY AND C/O FEELING WEAK WHEN STANDING. PT IS READY FOR DC ONCE PLACEMENT CAN BE ESTABLISHED. PT IN BED AT END OF SHIFT. BED IN LOW POSITION AND CALL LIGHT WITHIN REACH. UNEVENTFUL SHIFT.
[2020-10-17 03:25] VITALS: BP 149/67
--- NOTE | 2020-10-17 05:20 | NUR ---
patient cares were assumed at shift change. patient was assessed and meds were passed. patient did sleep the majority of this shift. patient is here and progressing well to discharge. Insurance contines to decline different facilities. family has fieled an carlos enrique.
[2020-10-17 07:10] VITALS: BP 163/71
--- NOTE | 2020-10-17 09:14 | P ---
[facility] [place] [address] PROCEDURE REPORT Name: KIRBY HOFFMAN Room #: 210-P [facility] IN M.R.#: [id number] Admission: 10/06/20 Attend Phys: Cadence Lara MD Discharge: Date of : 32 Report #: [id number] THIS REPORT FOR: cc: MARKEL LANE Physician not on staff Fidel Melara MD ~ PROCEDURE: Pacemaker implantation. PREOPERATIVE DIAGNOSES: 1. Sick sinus syndrome. 2. Tachycardia-bradycardia syndrome. 3. Paroxysmal atrial fibrillation. HISTORY: The patient is an 89-year-old presenting with possible syncopal episode and on admission, was noted to have episodes of paroxysmal atrial fibrillation as well as tachycardia-bradycardia syndrome with sick sinus syndrome and in sinus arrest with pauses up to 4-5 seconds. He is here for dual chamber pacemaker implantation. ANESTHESIA: The patient underwent MAC anesthesia with no anesthesia related complications. DESCRIPTION OF PROCEDURE: The patient underwent informed consent and his durable power of estate attorney was consented for pacemaker implantation. We discussed the details of the procedure including the risks which include but not limited to bleeding, infection, vascular damage, cardiac perforation, pneumothorax. She agreed with this and was willing for us to proceed. The patient was brought to EP laboratory in fasting and sedated state, prepped and draped in sterile fashion, underwent a venogram showing patency of left axillary vein and received IV antibiotics. Next, I injected lidocaine at the incision site. Incision was made, pocket was created over the prepectoral fascia and access was obtained twice to left axillary vein using the extrathoracic approach. Sheaths were positioned using the modified Seldinger technique. Next, under fluoroscopy, leads were positioned in the right ventricular apex, right atrial appendage. The atrial lead had to be repositioned 3 times due to very small P waves. Final position had good P waves and good thresholds. Leads were sutured to the prepectoral fascia, connected to the device, pocket irrigated and pocket closed in 2 layers using 2-0 for the deep layer, 3-0 for the mid layer and surgical glue was placed to outer skin layer. The patient awoke neurologically and hemodynamically intact. No complications and no significant bleeding. The implanted pacemaker and leads were Medtronic. The generator was Nora with a model # W3DR01, serial # [id number]. The atrial lead was a 5076, serial #[id number], RV lead was a 5076, 58 cm, serial #[id number]. The atrial lead demonstrated P waves of 1.[address] [address] PROCEDURE REPORT Name: KIRBY HOFFMAN Room #: [address] [place] [address] IN M.R.#: [id number] Admission: 10/06/20 Attend Phys: Cadence Lara MD Discharge: Date of : 32 Report #: [id number] millivolts, pacing impedance of 618 ohms and a pacing threshold of 0.8 volts at 1 millisecond. RV lead demonstrated R waves of 7.5 millivolts, pacing impedance of 1290 ohms and the pacing threshold 0.9 volts at 0.5 milliseconds. The device was programmed to DDDR 60-130 mode. CONCLUSIONS: 1. Successful dual-chamber pacemaker implantation. 2. Satisfactory atrial and ventricular pacing and sensing thresholds. <ELECTRONICALLY SIGNED> By: Fidel Melara MD 10/17/20 0914 1604 50 Fidel Melara MD /nt
[2020-10-17 11:13] VITALS: BP 162/65
--- NOTE | 2020-10-17 14:17 | NUR ---
PT DISCHARGING TODAY TO [facility] OP SKILLED FAXED DC ORDERS/SUMMARY TO FACILITY SPOKE WITH AUSTEN IN ADM SHE RECEIVED ORDERS AND [facility]. NOTIFIED PT'S FRIEND (MITZY) OF DC AND TIME OF TRANSPORT. UNIT NOTIFIED AND CHART COPY PER US. NURSE TO CALL REPORT TO [phone].
--- NOTE | 2020-10-17 15:39 | NUR ---
ASSUMED CARE OF PT AT SHIFT CHANGE. ASSESSMENT CHARTED. MEDS GIVEN PER SEP. PT A&OX4, BUT FORGETFUL. NO C/O PAIN OR DISTRESS. DISCHARGE ORDERS COMPLETE. PT TRANSPORTED TO FACILTY VIA WHEELCHAIR VAN .
--- NOTE | 2020-10-17 17:31 | NUR ---
[facility] private pay with part B therapy at [facility]. Dc arranged with their liason and pt's jamie Gallegos. Rosy did attempt to reach pt's ins plan to appeal snf denial but elected to proceed with placement and part b therapy in the interium. Chart copy was sent with the pt and nursing called report. The dc land use planner faxed the final orders. Case closed.
== END 2020-10-17 15:24 | DRG 242 ==
LOC: ER 17:58 → 3W 19:42 → EROBS 19:42 → 2N 19:42 → 3W 20:47 → 2N 10-13 14:31
PROVIDERS: Hospitalist; Internal Medicine Cardiovascular Disease; Nurse Practitioner; Nurse Practitioner Family; ADMIT Hospitalist; ATTEND Hospitalist
DX: I49.5 Sick sinus syndrome (principal); N17.0 Acute kidney failure with tubular necrosis; G93.41 Metabolic encephalopathy; E87.2 Acidosis; E44.0 Moderate protein-calorie malnutrition; F05 Delirium due to known physiological condition; I48.0 Paroxysmal atrial fibrillation; E87.5 Hyperkalemia; K21.9 Gastro-esophageal reflux disease without esophagitis; Z20.822 Contact with and (suspected) exposure to COVID-19; E03.9 Hypothyroidism, unspecified; E78.00 Pure hypercholesterolemia, unspecified; E11.40 Type 2 diabetes mellitus with diabetic neuropathy, unspecified; I12.9 Hypertensive chronic kidney disease with stage 1 through stage 4 chronic kidney disease, or unspecified chronic kidney disease; G25.81 Restless legs syndrome; D64.9 Anemia, unspecified; E11.65 Type 2 diabetes mellitus with hyperglycemia; E11.51 Type 2 diabetes mellitus with diabetic peripheral angiopathy without gangrene; E11.22 Type 2 diabetes mellitus with diabetic chronic kidney disease; E78.5 Hyperlipidemia, unspecified; R53.81 Other malaise; Z60.2 Problems related to living alone; R63.4 Abnormal weight loss; F03.90 Unspecified dementia, unspecified severity, without behavioral disturbance, psychotic disturbance, mood disturbance, and anxiety; N18.30 Chronic kidney disease, stage 3 unspecified; Z73.6 Limitation of activities due to disability; Z79.4 Long term (current) use of insulin; Z98.42 Cataract extraction status, left eye; Z98.41 Cataract extraction status, right eye; Z87.891 Personal history of nicotine dependence; Z87.81 Personal history of (healed) traumatic fracture; Z82.49 Family history of ischemic heart disease and other diseases of the circulatory system; Z68.25 Body mass index [BMI] 25.0-25.9, adult
CPT/HCPCS: 10081; 10879; 70005

== ENCOUNTER 2020-10-21 02:47 | Inpatient (IN) | payer OTHER ==
[~2020-10-21] VITALS: Ht 185.4 cm; Wt 65.8 kg
[2020-10-21] VITALS (7 sets, daily range): BP systolic 113–124; BP diastolic 36–68
[~2020-10-21 02:47] MED LIST changes: +ALLOPURINOL 10100 M3 PO; +CARDIZEM LA240 M1 PO; +HYDRALAZINE 2525 M1 PO; +METOPROLOL SUCC50 MG PO; +METOPROLOL TART25 MG PO; +NAMENDA 10 MG T10 MG PO
[2020-10-21] MEDS ORDERED: ARICEPT10 M1 PO (02:59)
[2020-10-21] MEDS ORDERED: VITAMIN D3 COM1 EACH PO (03:01)
[2020-10-21] MEDS ORDERED: CALCIUM CARBON600 M1 PO (03:01)
--- NOTE | 2020-10-21 04:05 | NUR ---
NOTIFIED LAB (ANA) THAT LAB WORK HAS BEEN SENT BUT DOESN'T REFLECT THAT THE LAB HAS RECEIVED ANY OF IT. AFTER CALLING LAB FOR OVER 10 MINUTES AND 3 SEPARATE PHONE NUMBERS, [facility]NA FINALLY ANSWERED. HE STATED, "YEAH, I WILL GET AROUND TO IT"
[2020-10-21 04:19] LABS: ABSOLUTE NEUTROPHILS 8.1 thou/uL (1.4-8.2); BASOPHILS 0.3 % (0.0-2.0); EOSINOPHILS 0.7 % (0.0-3.0); HEMATOCRIT 29.5 % (42.0-52.0); LYMPHOCYTES 4.5 % (24.0-44.0); MCH 32.7 pg (26.0-34.0); MCHC 33.9 g/dL (28.0-37.0); MCV 96.5 fL (80.0-100.0); MONOCYTES 12.4 % (1.0-8.0); PLATELET COUNT 190 thou/uL (150-400); POLYS 82.1 % (36.0-66.0); RBC 3.05 mil/uL (4.50-6.00); RDW 14.4 % (10.5-14.5); WBC 9.8 thou/uL (4.0-11.0)
[2020-10-21 04:29] LABS: ANION GAP 17 mmol/L (7-16); BUN 60 mg/dL (7-18); CALCIUM 8.2 mg/dL (8.5-10.1); CHLORIDE 104 mmol/L (98-107); CO2 19 mmol/L (21-32); CREATININE 3.7 mg/dL (0.7-1.3); GLUCOSE 223 mg/dL (74-106); POTASSIUM 4.3 mmol/L (3.5-5.1); SODIUM 140 mmol/L (136-145)
[2020-10-21 04:39] LABS: ALBUMIN 3.2 g/dL (3.4-5.0); SGOT 16 U/L (15-37); SGPT 29 U/L (16-63); TOTAL BILIRUBIN 0.3 mg/dL (0.2-1.0); TOTAL PROTEIN 7.2 g/dL (6.4-8.2); TROPONIN-I <0.06 ng/mL (<0.06)
[2020-10-21 05:20] LABS: URINE BILIRUBIN NEGATIVE (Negative); URINE BLOOD 1+ (Negative); URINE CLARITY CLOUDY; URINE COLOR YELLOW; URINE GLUCOSE-RANDOM* TRACE (Negative); URINE KETONES NEGATIVE (Negative); URINE LEUKOCYTES-REFLEX NEGATIVE (Negative); URINE NITRITE-REFLEX NEGATIVE (Negative); URINE PROTEIN (DIPSTICK) 1+ (Negative); URINE SPECIFIC GRAVITY >= 1.030 (1.005-1.035); URINE UROBILINOGEN 0.2 E.U./dl (0.2-1.0)
[2020-10-21 05:27] LABS: BE(vivo) -8.6 mmol/L (-2 to +3); PCO2 30.5 mmHg (35.0-45.0); PO2 67.3 mmHg (80.0-100.0); pH 7.337 (7.360-7.450); sO2 92.6 % (92.0-98.0)
[2020-10-21 05:35] LABS: BACTERIA-REFLEX 1-9 Few /HPF (None Seen); CASTS None Seen /LPF (None Seen); CRYSTALS None Seen /LPF (None Seen); MUCUS 0-3 Light strn/LPF (None Seen); SQUAMOUS 0-3 Few /LPF (0-3); URINE RBC 3-10 Few /HPF (0-2); URINE WBC-REFLEX 0-5 Rare /HPF (0-5)
--- NOTE | 2020-10-21 07:00 | EKG ---
[place] [address] [facility] [place] [address] ELECTROCARDIOGRAM REPORT Name: KIRBY HOFFMAN Room #: 170-4 ADM IN M.R.#: [id number] Admission: 10/21/20 Attend Phys: Diony Jaquez Discharge: Date of : 32 Report #: [id number] [facility] ED Test Date: 2020-10-21 Test Time: 03:11:18 Pat Name: KIRBY HOFFMAN Department: Room: 170 Gender: M Entry Manager: tushar : [id number] Requested By: Jodee Spring Order Number: [id number] MD: Jasen Acosta Measurements Intervals [place] Rate: 118 P: DE: QRS: -75 QRSD: 100 T: 25 QT: 395 QTc: 554 Interpretive Statements Atrial fibrillation Abnormal R-wave progression, late transition Inferior infarct, old Prolonged QT interval Baseline wander in lead(s) V5 Compared to ECG 10/06/2020 19:10:49 Myocardial infarct finding now present Prolonged QT interval now present Sinus rhythm no longer present Atrial premature complex(es) no longer present Left anterior fascicular block no longer present Electronically Signed On 10-21-2020 6:59:50 CDT by Jasen Acosta [email or web address] <ELECTRONICALLY SIGNED> By: Jasen Acosta MD, FACC 10/21/20 0659 0 0 Jasen Acosta MD, FAC /EPI
--- NOTE | 2020-10-21 15:48 | NUR ---
PT ADMITTED ON 3W, ROOM 355. IN ENHANCED ISOLATION FOR COVID R/O. PT ALERT AND ORIENTED X2, CONFUSED AND SLEEPY MOST OF THE DAY. ELECTROMECHANICAL ASSEMBLY TECHNICIAN PLACED ON PT. PT HAS A PACEMAKER. ADMISSION AND ASSESSMENT COMPLETED. FALL PRECAUTIONS IN PLACE. PT CAREGIVER MITZY BROOKS AND UPDATED ABOUT PT CARE. WILL CONTINUE TO MONITOR.
--- NOTE | 2020-10-21 17:19 | EKG ---
[address] [place] [address] ELECTROCARDIOGRAM REPORT Name: KIRBY HOFFMAN Room #: 355-P ADM IN M.R.#: [id number] Admission: 10/21/20 Attend Phys: Juan Bazzi MD Discharge: Date of : 32 Report #: [id number] [facility] Test Date: 2020-10-21 Test Time: 10:52:36 Pat Name: KIRBY HOFFMAN Department: Room: 355 P Gender: M Nut Picker: LEX : 1930 Requested By: Ernst Manrique Order Number: [id number] MD: Ernst Manrique Measurements Intervals [place] Rate: 91 P: MS: QRS: -52 QRSD: 97 T: -9 QT: 406 QTc: 500 Interpretive Statements Atrial fibrillation Inferior infarct, old Prolonged QT interval Compared to ECG 10/21/2020 03:11:18 Heart rate has slowed Electronically Signed On 10-21-2020 17:19:32 CDT by Ernst Manrique [email or web address] <ELECTRONICALLY SIGNED> By: Ernst Manrique MD, [facility] 10/21/20 1719 105 51 Ernst Manrique MD, FACC /EPI
[2020-10-22 05:00] VITALS: BP 168/56
[2020-10-22 06:01] LABS: ABSOLUTE NEUTROPHILS 6.1 thou/uL (1.4-8.2); BASOPHILS 0.3 % (0.0-2.0); EOSINOPHILS 1.4 % (0.0-3.0); HEMATOCRIT 24.7 % (42.0-52.0); HEMOGLOBIN 8.4 gm/dL (14.0-18.0); MCH 32.7 pg (26.0-34.0); MCHC 34.1 g/dL (28.0-37.0); MCV 95.8 fL (80.0-100.0); MONOCYTES 14.6 % (1.0-8.0); PLATELET COUNT 175 thou/uL (150-400); POLYS 69.7 % (36.0-66.0); RBC 2.58 mil/uL (4.50-6.00); RDW 14.8 % (10.5-14.5); WBC 8.7 thou/uL (4.0-11.0)
[2020-10-22 06:15] LABS: MAGNESIUM 1.7 mg/dL (1.8-2.4); POTASSIUM 4.1 mmol/L (3.5-5.1)
[2020-10-22 12:02] VITALS: BP 153/66
--- NOTE | 2020-10-22 12:13 | NUR ---
Case opened to follow for dc planning. Pt known to cm from recent dc last Tuesday to ltc private pay at [facility]. The pt was readmitted with fall/rib fxs/ chf exac/TAMELA. Therapy evals are pending. Pt neg covidx2. Copper Tapper spoke with his fri/dpoa Rosy. Pt is in need of rehab with plans to move to [facility] as soon as his apt is ready. Will have [facility] submit for SNF auth request as the pt could benefit from daily therapy instead of part B. Rosy in agreement. She is on her way to visit with his this afternoon. Message left for the [facility] liason. Dc business planner to fax clinical updated and therapy evals this afternoon to support auth request. Will follow.
--- NOTE | 2020-10-22 13:30 | NUR ---
Assess due to RD consult received. Recently discharged 10/17, now readmitted with acute/chronic heart failure, and trauma with recurrent falls. Hx DM, dementia. ST has assessed, aspiration risk and placed on modified diet order (need clarification of nectar or honey liquid need-left message to confirm). Was eating poor to good last week 30-75%. Intake of new puree diet 50-100%. Wts highly variable 142-160 lb and pt has required diuresis. Current wt is 158 lb. Will order magic cups. Place low nutrition risk with appropriate nutrition interventions in place.
--- NOTE | 2020-10-22 14:58 | NUR ---
FAXED REFERRAL TO [facility] FOR SKILLED STAY RECEIVED CONFIRMATION AND LEFT MSG WITH AUSTEN IN ADM ALSO SENT EMAIL TO ROSALEE ALLEN.
[2020-10-22 17:14] VITALS: BP 155/62
--- NOTE | 2020-10-22 18:19 | NUR ---
PT OFF ENHANCED PRECAUTIONS, AFTER 2ND COVID TEST NEGATIVE. UP IN THE CHAIR FOR A COUPLE OF HOURS. USES THE URINAL AT TIMES BUT INCONTINENT. PT IS ON 2L OF O2 NOW, NO SIGNS OF DISTRESS NOTED. FALL PRECAUTIONS IN PLACE. WILL CONTINUE TO MONITOR
[2020-10-22 19:41] VITALS: BP 160/55
--- NOTE | 2020-10-22 23:01 | NUR ---
PT RESTING IN BED. O2 PER NC. LUNGS COARSE, LOOSE COUGH. PT SMILING TALKATIVE JOKING. IV MEDS INTACT. BED ALARM ON.
[2020-10-23 04:15] VITALS: BP 163/62
[2020-10-23 06:05] LABS: CALCIUM 8.5 mg/dL (8.5-10.1); CREATININE 2.4 mg/dL (0.7-1.3); POTASSIUM 3.9 mmol/L (3.5-5.1)
--- NOTE | 2020-10-23 06:58 | NUR ---
PT ARGUING WITH RENAL DR, DEMANDING HE TAKE OFF HIS MASK TO TALK WITH HIM. PT YELLING WHY AM I HERE. I WANT OUT OF HERE. DEMANDING DR TELL HIM WHAT IS WRONG WITH HIM AND THEN STATED HE DOESNT WANT TO TALK WITH DR. PT CALM AND PLEASANT WITH NURSING STAFF.
[2020-10-23 07:43] VITALS: BP 177/77
--- NOTE | 2020-10-23 07:47 | NUR ---
CHARGE NURSE CALLED INTO ROOM BY DR. FRANCOIS. PT BEING DISRESPECTFUL AND UNCIVIL TOWARDS PHYSICIAN. PT COULD NOT BE REASONED WITH NOR WOULD PT NOT STOP INTERRUPTING PHYSICIAN SPEAKING. PT STATING NO PHYSICIANS SEE HIM NOR WILL ANYONE EXPLAIN WHAT IS HAPPENING WITH HIS CARE. ALL CARE PROVIDERS REMAINED CALM AND COMPOSED.
--- NOTE | 2020-10-23 16:13 | NUR ---
PT IMPULSIVE AND TRYING TO GET OUT OF BED MULTIPLE TIMES. EDUCATION REINFORCED ABPUT USING CALL LIGHT CALLLING NURSING STAFF.FALL PRECAUTIONS IN PLACE, AND FREQUENT CHECK DONE. ANTICIPATING FOR D/C BACK TO PT FACILITY SOON. WILL CONTINUE TO MONITOR.
[2020-10-23 18:32] VITALS: BP 180/83
[2020-10-23 18:38] VITALS: BP 163/73
[2020-10-23 19:19] VITALS: BP 160/58
[2020-10-24 04:24] VITALS: BP 179/87
--- NOTE | 2020-10-24 07:35 | NUR ---
progress PT ALERT TO SELF, PLEASANT BUT REFUSES MEDS PULLED OUT IV AND ESTART ATTEMPTED WITHOUT ANY SUCCESS PT PULLED AWAY OR WOULDNT COOPERATE. TELE INACT, VSS VOIDING QS AND HAD A BM REMAINS IMPULSIVE. SETTING OFF BED ALARM FREQUENTLY. VOIDING PER URINAL UP WITH SBA FOR SAFETY GAIT STEADY BUT PT MAY WANDER. CONTINUE POC.
[2020-10-24 07:45] VITALS: BP 172/77
--- NOTE | 2020-10-24 12:34 | NUR ---
DAX reviewed chart and spoke with nursing and attending physician. Pt is medically stable for discharge to [facility]. maintenance planner to fax updates to the facility for review. DAX provided update to [facility] liaison and notified that pt is ready for discharge. Awaiting insurance authorization at this time. Chart copy requested. DAX is following to assist as needed with discharge planning.
--- NOTE | 2020-10-24 12:43 | NUR ---
FAXED CLINICAL UPDATES AND NEGATIVE COVID RESULT (10/21/20) TO [facility]. CONFIRMED WITH AUSTEN/LIAISON THAT HYDRO STATION OPERATOR WORKING ON INSURANCE AUTHORIZATION WITH DISCHARGE TODAY. [facility] P [phone]; FAX [phone]; AUSTEN Anderson [phone]
[2020-10-24] MEDS ORDERED: NEURONTIN 300M300 M2 PO (17:05)
[2020-10-24] MEDS ORDERED: METOPROLOL TART25 MG PO (17:07)
[2020-10-24] MEDS ORDERED: CARDIZEM CD 18180 M3 PO (17:09)
--- NOTE | 2020-10-24 18:15 | NUR ---
ASSUMED PT CARE AT SHIFT CHANGE, PT HAD REMOVED HIS IV, AND REFUSED A NEW ONE WHEN THIS RN ATTEMPTED. DR SMITH APPROVED MEDS TO PO. PT HAS BEEN COMPLIANT TODAY WITH CALLING FOR ASSIST WHEN TOILETING AND AMBULATING. PT STATES HE IS READY TO GET OUT OF THE HOSPITAL. PT SEEMS TO INCREASE CONFUSION AT NIGHT. 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
[2020-10-24 19:43] VITALS: BP 151/79
[2020-10-25 03:38] VITALS: BP 148/6
[2020-10-25 07:33] VITALS: BP 171/73
--- NOTE | 2020-10-25 07:36 | NUR ---
PROGRESS PT ALERT PLEASANT AND COOPERATIVE, TOLERATING THICKENED LIQUIDS MEDS GIVEN WITH PUDDING WHOLE BUT PT UNABLE TO SWALLOW LARGE PILLS. VOIDING PER URINAL. REMAINS IMPULSIVE. NOT ORIENTED TO PLACE OR SITUATION. SLEPT MOST OF NIGHT VSS, CONTINUE POC.
[2020-10-25 15:22] VITALS: BP 149/65
--- NOTE | 2020-10-25 16:35 | NUR ---
care assumed 0700, alert and oriented x2, confused an demented. on room air, no signs of distress noted. fall precautions in place. anticipating for d/c soon.
[2020-10-25 19:56] VITALS: BP 163/80
[2020-10-26 03:37] VITALS: BP 156/56
--- NOTE | 2020-10-26 07:31 | NUR ---
progress pt slept all noc voiding qs, incontinent at times. remains pleasant and cooperative vss tele intact.
[2020-10-26 08:02] VITALS: BP 162/75
--- NOTE | 2020-10-26 11:24 | NUR ---
care asumed this am, pt was sleeping. came back an hour later, pt awake. assessment completed, am meds given per order. on room air, no signs of distress. fall precautions in place. will continue to monitor.
[2020-10-26 15:18] VITALS: BP 156/72
[2020-10-26 19:16] VITALS: BP 141/61
--- NOTE | 2020-10-27 01:49 | NUR ---
PT ALERT AND ORIENTED X2. PT VERY TAKOTNA. VSS AFEBRILE . A PACED AND SOMETIMES AV PACED ON THE MONITOR. NO C/O PAIN. UNLABORED ON RA. BED DOWN. CALL LIGHT IN REACH. NO S/S DISTRESS. INC OF STOOL IN LG AMOUNTS.
[2020-10-27 03:53] VITALS: BP 148/60
[2020-10-27 06:07] LABS: CALCIUM 8.9 mg/dL (8.5-10.1); CREATININE 2.1 mg/dL (0.7-1.3); POTASSIUM 3.9 mmol/L (3.5-5.1)
[2020-10-27 07:35] VITALS: BP 168/68
[2020-10-27] MEDS ORDERED: AUGMENTIN 500-1 EACH PO (09:51)
[2020-10-27] MEDS ORDERED: TORSEMIDE10 MG PO (09:58)
--- NOTE | 2020-10-27 11:53 | NUR ---
DISCHARGE NOTE: DAX reviewed chart and spoke with nursing and attending physician. Attending physician did the peer to peer this morning with pt's insurance. SNF authorization was provided. DAX faxed finalized discharge orders/summary and repeat COVID test to [facility]. DAX notified [facility] liaison. Transportation scheduled for [phone] per facility's arrangements. DAX updated pt's nurse and provided number for report. DAX spoke with pt's DPOA, Rosy, via phone to provide update. Rosy is agreeable with discharge plan. Rosy will follow up with [facility] on pt being evaluated for AL v. Memory Care after skilled. Chart copy requested. No additional SW needs identified at this time, but is available to assist should needs arise.
[2020-10-27 12:45] VITALS: BP 169/68
== END 2020-10-27 12:45 | DRG 871 ==
LOC: ER 02:47 → EROBS 05:39 → 3W 05:39
PROVIDERS: Emergency Medicine; Hospitalist; Nurse Practitioner; ADMIT Hospitalist; ATTEND Hospitalist
PROC: 5A09357 Assistance with Respiratory Ventilation, Less than 24 Consecutive Hours, Continuous Positive Airway Pressure (ICD-10-PCS; principal; 2020-10-21)
PROC: 4B02XSZ Measurement of Cardiac Pacemaker, External Approach (ICD-10-PCS; 2020-10-22)
DX: A41.9 Sepsis, unspecified organism (principal); J96.01 Acute respiratory failure with hypoxia; N17.0 Acute kidney failure with tubular necrosis; I50.33 Acute on chronic diastolic (congestive) heart failure; J69.0 Pneumonitis due to inhalation of food and vomit; I13.0 Hypertensive heart and chronic kidney disease with heart failure and stage 1 through stage 4 chronic kidney disease, or unspecified chronic kidney disease; E11.22 Type 2 diabetes mellitus with diabetic chronic kidney disease; E78.5 Hyperlipidemia, unspecified; E03.9 Hypothyroidism, unspecified; M10.9 Gout, unspecified; K21.9 Gastro-esophageal reflux disease without esophagitis; E78.00 Pure hypercholesterolemia, unspecified; G25.81 Restless legs syndrome; E11.40 Type 2 diabetes mellitus with diabetic neuropathy, unspecified; F03.90 Unspecified dementia, unspecified severity, without behavioral disturbance, psychotic disturbance, mood disturbance, and anxiety; E11.51 Type 2 diabetes mellitus with diabetic peripheral angiopathy without gangrene; G47.33 Obstructive sleep apnea (adult) (pediatric); N18.9 Chronic kidney disease, unspecified; I48.0 Paroxysmal atrial fibrillation; I49.5 Sick sinus syndrome; I08.1 Rheumatic disorders of both mitral and tricuspid valves; Z20.822 Contact with and (suspected) exposure to COVID-19; Z95.0 Presence of cardiac pacemaker; Z98.42 Cataract extraction status, left eye; Z98.41 Cataract extraction status, right eye; Z79.01 Long term (current) use of anticoagulants; Z79.899 Other long term (current) drug therapy; Z79.84 Long term (current) use of oral hypoglycemic drugs
CPT/HCPCS: 10879

== ENCOUNTER 2020-11-15 12:39 | Emergency (ER) | payer OTHER ==
[~2020-11-15] VITALS: Ht 167.6 cm; Wt 68.0 kg
[~2020-11-15 12:39] MED LIST changes: +AUGMENTIN 500-1 EACH PO; +CALCIUM CARBON600 M1 PO; +CARDIZEM CD 18180 M3 PO; +NEURONTIN 300M300 M2 PO; +TORSEMIDE10 MG PO; +VITAMIN D3 COM1 EACH PO
[2020-11-15 13:24] LABS: ABSOLUTE NEUTROPHILS 7.9 thou/uL (1.4-8.2); BASOPHILS 0.2 % (0.0-2.0); EOSINOPHILS 0.8 % (0.0-3.0); HEMATOCRIT 30.3 % (42.0-52.0); HEMOGLOBIN 10.2 gm/dL (14.0-18.0); LYMPHOCYTES 9.2 % (24.0-44.0); MCH 32.3 pg (26.0-34.0); MCHC 33.5 g/dL (28.0-37.0); MCV 96.4 fL (80.0-100.0); MONOCYTES 11.5 % (1.0-8.0); PLATELET COUNT 272 thou/uL (150-400); POLYS 78.3 % (36.0-66.0); RBC 3.14 mil/uL (4.50-6.00); RDW 15.4 % (10.5-14.5); WBC 10.1 thou/uL (4.0-11.0)
[2020-11-15 13:27] LABS: CALCIUM 8.9 mg/dL (8.5-10.1); CREATININE 3.2 mg/dL (0.7-1.3); POTASSIUM 4.2 mmol/L (3.5-5.1)
[2020-11-15 16:00] VITALS: BP 133/65
== END 2020-11-15 16:15 | disposition home or self-care (01) ==
LOC: ER 12:39
PROVIDERS: Nurse Practitioner
DX: S72.002A Fracture of unspecified part of neck of left femur, initial encounter for closed fracture (principal); Z20.822 Contact with and (suspected) exposure to COVID-19; I10 Essential (primary) hypertension; K21.9 Gastro-esophageal reflux disease without esophagitis; E03.9 Hypothyroidism, unspecified; E78.00 Pure hypercholesterolemia, unspecified; E11.40 Type 2 diabetes mellitus with diabetic neuropathy, unspecified; F03.90 Unspecified dementia, unspecified severity, without behavioral disturbance, psychotic disturbance, mood disturbance, and anxiety; I48.91 Unspecified atrial fibrillation; E11.51 Type 2 diabetes mellitus with diabetic peripheral angiopathy without gangrene; Z95.0 Presence of cardiac pacemaker; Z79.899 Other long term (current) drug therapy; Z87.891 Personal history of nicotine dependence; W19.XXXA Unspecified fall, initial encounter; Y93.89 Activity, other specified; Y92.89 Other specified places as the place of occurrence of the external cause; Y99.8 Other external cause status

== ENCOUNTER 2021-06-13 17:30 | Inpatient (IN) | payer OTHER ==
[~2021-06-13] VITALS: Ht 167.6 cm; Wt 63.5 kg
[2021-06-13 17:36] VITALS: BP 160/74
[2021-06-13 18:28] LABS: ABSOLUTE NEUTROPHILS 14.5 thou/uL (1.4-8.2); BASOPHILS 0.1 % (0.0-2.0); EOSINOPHILS 0.1 % (0.0-3.0); HEMATOCRIT 31.6 % (42.0-52.0); HEMOGLOBIN 10.8 gm/dL (14.0-18.0); MCH 33.1 pg (26.0-34.0); MCHC 34.2 g/dL (28.0-37.0); MCV 96.6 fL (80.0-100.0); MONOCYTES 11.9 % (1.0-8.0); PLATELET COUNT 255 thou/uL (150-400); POLYS 81.9 % (36.0-66.0); RBC 3.27 mil/uL (4.50-6.00); WBC 17.7 thou/uL (4.0-11.0)
[2021-06-13 18:35] LABS: APTT 28.7 Seconds (24.5-32.8); CALCIUM 9.2 mg/dL (8.5-10.1); CREATININE 4.2 mg/dL (0.7-1.3); INR 1.04; POTASSIUM 4.3 mmol/L (3.5-5.1); PROTIME 11.3 Seconds (10.5-12.1)
[2021-06-13 18:37] LABS: ALBUMIN 3.6 g/dL (3.4-5.0); TOTAL BILIRUBIN 0.5 mg/dL (0.2-1.0); TOTAL PROTEIN 8.4 g/dL (6.4-8.2)
[2021-06-13 19:04] LABS: URINE BILIRUBIN NEGATIVE (Negative); URINE BLOOD TRACE (Negative); URINE CLARITY CLEAR; URINE COLOR YELLOW; URINE GLUCOSE-RANDOM* NEGATIVE (Negative); URINE KETONES NEGATIVE (Negative); URINE LEUKOCYTES-REFLEX 1+ (Negative); URINE NITRITE-REFLEX NEGATIVE (Negative); URINE PROTEIN (DIPSTICK) 1+ (Negative); URINE UROBILINOGEN 0.2 E.U./dl (0.2-1.0)
[2021-06-13 19:13] LABS: HYALINE CASTS 0-3 Few /LPF (None Seen)
[2021-06-13 19:14] LABS: BACTERIA-REFLEX >30 Many /HPF (None Seen); CRYSTALS None Seen /LPF (None Seen); SQUAMOUS None Seen /LPF (0-3); URINE RBC 1-2 Rare /HPF (NONE SEEN); WBC CLUMPS Few (None Seen)
[2021-06-13] MEDS ORDERED: NORVASC 2.5 MG2.5 MG PO (19:59)
[2021-06-13] MEDS ORDERED: ASA81BEC PO (19:59)
[2021-06-13] MEDS ORDERED: LEVOTHYROXINE88 MC1 PO (20:01)
[2021-06-13] MEDS ORDERED: TORSEMIDE20 MG PO (20:03)
[2021-06-13] MEDS ORDERED: TYLENOL EXTRA500 MG PO (20:04)
[2021-06-13 20:14] VITALS: BP 160/74
[2021-06-13 20:22] VITALS: BP 144/69
--- NOTE | 2021-06-13 22:58 | NUR ---
ADMISSION COMPLETED, PT IS CONFUSED AND [place] MUCH OF ADMIT DATA OBTAINED FROM SNF INFO PACKET. PT HAS A RIVERA TO D/D, LIGHT YELLOW U/O. PT PLACED ON /2L TO KEEP SATS ABOVE 92%.PT ON TELEMETRY-PACED, TACHYCARDIC, METOPROLOL SCHEDULED PO GIVEN. HE SWALLOWS MEDS WITH APPLE SAUCE WELL HONEY THICK, DID WELL. FEVER OF 99.2, GIVEN PRN TYLENOL.BP STABLE.DENIES PAIN WILL CONTINUE TO CLOSELY MONITOR PATIENT.
[2021-06-14 05:57] LABS: HEMATOCRIT 28.8 % (42.0-52.0); HEMOGLOBIN 9.4 gm/dL (14.0-18.0); MCH 32.1 pg (26.0-34.0); MCHC 32.8 g/dL (28.0-37.0); MCV 97.9 fL (80.0-100.0); RBC 2.94 mil/uL (4.50-6.00); WBC 17.7 thou/uL (4.0-11.0)
[2021-06-14 06:06] LABS: CALCIUM 8.8 mg/dL (8.5-10.1); CREATININE 3.6 mg/dL (0.7-1.3); POTASSIUM 4.5 mmol/L (3.5-5.1)
[2021-06-14 07:56] VITALS: BP 102/57
--- NOTE | 2021-06-14 12:05 | EKG ---
[place] [address] [facility] [email or web address] [address] ELECTROCARDIOGRAM REPORT Name: KIRBY HOFFMAN DAWSON Room #: 447-P ADM IN M.R.#: [id number] Admission: 06/13/21 Attend Phys: Gilles Malloy MD Discharge: Date of : 32 Report #: [id number] [facility] ED Test Date: 2021-06-13 Test Time: 17:55:53 Pat Name: KIRBY HOFFMAN Department: Room: 447 Gender: M Pharmacy Sales Assistant: cw : [id number] Requested By: Maxi Garza Order Number: [id number] MD: Fidel Melara Measurements Intervals [place] Rate: 90 P: 161 NM: 154 QRS: -58 QRSD: 96 T: 12 QT: 456 QTc: 558 Interpretive Statements Sinus or ectopic atrial rhythm Left anterior fascicular block Abnormal R-wave progression, late transition Compared to ECG 10/21/2020 10:52:36 Electronically Signed On 06-14-2021 12:05:11 LEASE OPERATOR by Fidel eMlara [email or web address] <ELECTRONICALLY SIGNED> By: Fidel Melara MD 06/14/21 1205 54 54 Fidel Melara MD /MORRIS
[2021-06-14 16:10] VITALS: BP 124/57
--- NOTE | 2021-06-14 18:25 | NUR ---
PT ASSESSED AT START OF SHIFT. CONFUSED BUT COOPERATIVE W/ CARE. FED SELF AND GOOD APPETITE. DRINKING SEVERAL HONEY THICK LIQUIDS. TURNING SELF IN BED. DPOA HERE THIS AFTERNOON. NO C/O PAIN. IV FLUIDS DC'D PER ORDER.
[2021-06-14 20:02] VITALS: BP 116/62
[2021-06-15 05:18] LABS: HEMATOCRIT 26.8 % (42.0-52.0); HEMOGLOBIN 8.9 gm/dL (14.0-18.0); MCH 32.6 pg (26.0-34.0); MCHC 33.2 g/dL (28.0-37.0); RBC 2.74 mil/uL (4.50-6.00); RDW 15.2 % (10.5-14.5); WBC 12.1 thou/uL (4.0-11.0)
[2021-06-15 05:32] LABS: ALBUMIN 2.7 g/dL (3.4-5.0); CALCIUM 8.7 mg/dL (8.5-10.1); PHOSPHORUS 3.2 mg/dL (2.6-4.7); POTASSIUM 3.7 mmol/L (3.5-5.1)
--- NOTE | 2021-06-15 06:40 | NUR ---
PT LYING IN BED. DENIES PAIN. LARGE INCONTINENT BM THIS AM. RESTING COMFORTABLY. NO NEEDS VOICED. CALL LIGHT WITHIN REACH. FREQUENT OBSERVATION.
[2021-06-15 08:00] VITALS: BP 147/75
--- NOTE | 2021-06-15 08:50 | NUR ---
Chart review. He is A & o x 2-3 with confusion and forgetfulness. He is able to make his needs know. He cont to request water during cm visit. He is currently on thicken liquids. He lives at [facility]. He can have additional assist at [facility] if needed. Oxygen per nasal cannula. Will send referral to skilled at [facility] when have therapy notes to send. Cm left message with Rosy his friend. Will cont following as needed.
--- NOTE | 2021-06-15 12:20 | NUR ---
Discussed during los with the attend physician, possible ready dc in 1 more day. From Justin baeza [facility].
--- NOTE | 2021-06-15 12:21 | NUR ---
Assumed pt care at 7am.Pt in bed alert and oriented but pleasantly confused. Assessment completed, Meds given and well tolerated.Dr Jaquez here,order noted. Pt refused breakfas but drank 3 cups of thicken water.Pt later ambulated in hallways with therapist. Good endurance noted. Will continue to monitor.
[2021-06-15 19:57] VITALS: BP 152/78
--- NOTE | 2021-06-16 03:32 | NUR ---
ASSUMED PT CARE AT 1900, PT IS AWAKE, ORIENTED TO SELF, VERY [place], VERY CONFUSED AND IMPULSIVE AT TIMES, ASSESSMENTS CHARTED, RIVERA IN PLACE DRAINING ADEQUATE U/O, INCONTINENT OF LOOSE STOOL THIS SHIFT, REMAINS ON 2L NC, WILL CONTINUE TO MONITOR PER POC
[2021-06-16 05:53] LABS: HEMATOCRIT 31.6 % (42.0-52.0); HEMOGLOBIN 10.3 gm/dL (14.0-18.0); MCH 31.9 pg (26.0-34.0); MCHC 32.5 g/dL (28.0-37.0); MCV 98.2 fL (80.0-100.0); RBC 3.22 mil/uL (4.50-6.00); RDW 15.1 % (10.5-14.5); WBC 13.8 thou/uL (4.0-11.0)
[2021-06-16 06:42] LABS: CALCIUM 9.3 mg/dL (8.5-10.1); CREATININE 2.6 mg/dL (0.7-1.3); PHOSPHORUS 2.7 mg/dL (2.6-4.7)
[2021-06-16 08:58] VITALS: BP 131/78
--- NOTE | 2021-06-16 13:10 | NUR ---
Assumed pt care at 7am. Pt was restless and agitated early this shift. Assessment completed,pt 02 sat on 2liter was in the 80's. o2 increases to 3liter and later to 4l. RT paged . Face shield applied and Dr Jaquez notified Order noted.Pt has large soft bm this am and pericare given. Fall bundle in place. Pt dpoa called ,updates given. Piv repalced by iv team. Will continue to monitor.
--- NOTE | 2021-06-16 15:42 | NUR ---
Referral was sent to [facility]. Will need insurance auth from [employer]. Will cont following as needed.
[2021-06-16 15:56] VITALS: BP 132/75
[2021-06-16 19:34] VITALS: BP 143/62
--- NOTE | 2021-06-16 23:43 | NUR ---
ASSUMED CARE OF PT AT 1915. PT IS A&O TO SELF. IS IMPULSIVE, CONFUSED, ALATNA WITH BILAT HEARING AIDS. DENIES PAIN. IS ON 4L OF O2/NC. IS INCONT TO BOWEL. RIVERA CATH INTACT. PT IS STABLE. IS UP WITH 1 ASSIST, CONTACT LANA ROBERSON, WALKER. PT IS NOT STEADY ON FEET. FALL PRECAUTIONS & HOURLY ROUNDING CONTINUED THIS SHIFT. CALL LIGHT WITHIN REACH. WILL CONTINUE TO MONITOR.
[2021-06-17 04:06] VITALS: BP 166/84
[2021-06-17 07:57] VITALS: BP 143/70
[2021-06-17 08:11] LABS: HEMATOCRIT 29.9 % (42.0-52.0); HEMOGLOBIN 9.5 gm/dL (14.0-18.0); MCH 31.1 pg (26.0-34.0); MCHC 31.7 g/dL (28.0-37.0); RBC 3.05 mil/uL (4.50-6.00); WBC 12.1 thou/uL (4.0-11.0)
[2021-06-17 08:14] LABS: BE(vivo) -3.5 mmol/L (-2 to +3); HCO3 19.3 mmol/L (22.0-26.0); PO2 62.4 mmHg (80.0-100.0); pH 7.471 (7.360-7.450); sO2 93.7 % (92.0-98.0)
[2021-06-17 08:20] LABS: CREATININE 2.8 mg/dL (0.7-1.3); POTASSIUM 3.9 mmol/L (3.5-5.1)
[2021-06-17 08:27] LABS: ALBUMIN 2.7 g/dL (3.4-5.0); TOTAL BILIRUBIN 0.5 mg/dL (0.2-1.0); TOTAL PROTEIN 7.6 g/dL (6.4-8.2)
--- NOTE | 2021-06-17 09:00 | EKG ---
[place] [address] [facility] [place] [address] ELECTROCARDIOGRAM REPORT Name: KIRBY HOFFMAN Room #: 447-P ADM IN M.R.#: [id number] Admission: 06/13/21 Attend Phys: Gilles Malloy MD Discharge: Date of : 32 Report #: [id number] [facility] Test Date: 2021-06-17 Test Time: 07:59:21 Pat Name: KIRBY HOFFMAN Department: Room: 447 P Gender: M Addiction Specialist: AW : 1930 Requested By: Juan Bazzi Order Number: [id number] MD: Ernst Manrique Measurements Intervals [place] Rate: 79 P: 22 [place]: 159 QRS: -61 QRSD: 104 T: -11 QT: 447 QTc: 513 Interpretive Statements Sinus rhythm Atrial premature complex Incomplete RBBB and left anterior hemiblock Prolonged QT interval Compared to ECG 06/13/2021 17:55:53 Atrial premature complex(es) now present Electronically Signed On 06-17-2021 9:00:08 CREOSOTING ENGINEER by Ernst Manrique [email or web address] <ELECTRONICALLY SIGNED> By: Ernst Manrique MD, [facility] 06/17/21 0900 0759 0759 Ernst Manrique MD, [facility] /EPI
--- NOTE | 2021-06-17 09:45 | NUR ---
ELECTROPLATER APPRENTICE CALLED AT 0753 FOR PT DUE TO DESATTING TO 80'S ON 4L THIS MORNING, PER RT. SEE FLOWSHEET FOR DETAILS.
[2021-06-17 15:07] VITALS: BP 156/90
--- NOTE | 2021-06-17 16:00 | NUR ---
SUMMONED TO PT ROOM AT 0800 PER RESP THERAPIST FOR LOW O2 SAT ON 4L AND HAD TO INCREASE PT TO 15L PER HIGH FLOW CANNULA TO GET SAT TO 92%. RAPID ASSESSMENT CALLED AND DR. SMITH CAME AND ODERS RECEIVED. PT MONITORED CLOSELY THROUGHOUT THE SHIFT BUT HE KEPT TAKING THE OXYGEN OFF AND WOULD DESAT TO THE 70'S AND NOT RECOVER QUICK AFTER SEVERAL TIMES. PT WAS NPO X MEDS. SPEECH THERAPIST EVALUATED PT AND DETERMINED SAFETY WAS NPO. SECOND RAPID RESPONSE CALLED AT 1550 PT APPEARED TO BE DECOMPENSATING. DR. JUNIOR RESPONDED AND DETERMINED PT NEEDED TO TRANSFER TO CCU. REPORT GIVEN TO RECIEVING RN. CLOTH BALE HEADER TRANSPORTED PT PER BED W/ ALL BELONGINGS.
--- NOTE | 2021-06-17 16:09 | NUR ---
Updates sent to [facility]. Discussed during los with attending physician. Possible aspiration this morning. Unable to send ot notes related to variance. pt and st notes sent. Will need insurance auth. Greg spoke with jamie collado and she cont. to agree with dcp.
[2021-06-17 16:13] LABS: PCO2 32.5 mmHg (35.0-45.0); pH 7.486 (7.360-7.450); sO2 91.1 % (92.0-98.0)
[2021-06-17 16:14] LABS: PO2 54.8 mmHg (80.0-100.0)
[2021-06-17 16:38] VITALS: BP 154/69
--- NOTE | 2021-06-17 19:00 | NUR ---
RECEIVED PT FROM . PT TRANSFERRED AFTER RAPID RESPONSE. PT IS AWAKE, CONFUSED, ORIENTED TO SELF. PT CAME ON VENTI MASK, BUT WAS PLACED ON 15L NC UPON ARRIVAL ON FLOOR. CONTINUOUS PULSE OXIMETRY. PT C/O BEING THIRSTY. WHEN EXPLAINING THINGS TO PT, PT IS TOGIAK AND HEARS BETTER IN L EAR. POC IS TO CONTINUE TO ASSESS O2 SAT; PT NPO FOR ASPIRATION. HIGH FALL PRECAUTIONS IN PLACE. NO CONCERNS AT THIS TIME.
[2021-06-17 19:55] VITALS: BP 149/62
[2021-06-17 23:37] VITALS: BP 147/78
[2021-06-18 02:55] LABS: ALBUMIN 2.8 g/dL (3.4-5.0); CALCIUM 8.9 mg/dL (8.5-10.1); CREATININE 2.7 mg/dL (0.7-1.3); MAGNESIUM 2.3 mg/dL (1.8-2.4); PHOSPHORUS 3.5 mg/dL (2.5-4.9)
[2021-06-18 03:18] LABS: HEMATOCRIT 30.7 % (42.0-52.0); HEMOGLOBIN 10.1 gm/dL (14.0-18.0); MCHC 32.8 g/dL (28.0-37.0); MCV 97.7 fL (80.0-100.0); RBC 3.14 mil/uL (4.50-6.00); RDW 15.1 % (10.5-14.5)
[2021-06-18 03:50] VITALS: BP 146/84
--- NOTE | 2021-06-18 05:55 | NUR ---
ASSUMED PATIENT CARE AT 1845. VITAL SIGNS MOSTLY STABLE WITH PATIENT DISPLAYING HYPOXIA WHEN HE REMOVES NASAL CANNULA. ORIENTED TO SELF AND TIME, PATIENT IS PLEASANTLY CONFUSED BUT DOES RESPOND TO DIRECTION. OXYGEN SATURATION IN MID TO HIGH 90'S WHEN ON PATIENT. HE HAS BEEN MAINTAINED ON 15 LITERS HIGH FLOW NASAL CANNULA. CONTINUE PLAN OF CARE.
[2021-06-18 08:14] VITALS: BP 178/101
--- NOTE | 2021-06-18 11:17 | 2DMMODE ---
[facility] [place] [address] 2 D/M-MODE ECHOCARDIOGRAM Name: KIRBY HOFFMAN Room #: 217-P ADM IN M.R.#: [id number] Admission: 06/13/21 Attend Phys: Gilles Malloy MD Discharge: Date of : 32 Report #: [id number] THIS REPORT FOR: cc: Yaakov August MD, Neal A. MD Park, Jin S. MD ~ APPROVED REPORT Study performed: 06/18/2021 10:27:11 EXAM: Comprehensive 2D, Doppler, and color-flow Echocardiogram Patient Location: Bedside Room #: 217 Status: routine BSA: 1.92 HR: 85 bpm BP: 178/101 mmHg Rhythm: NSR Other Information Study Quality: Adequate Technically limited study due to uncooperative/confused patient. Not all measurements taken. Indications Short of breath. Hx: Afib, pacemaker. 2D Dimensions IVSd: 9.92 (7-11mm) LVOT Diam: 21.21 (18-24mm) LVDd: 43.12 mm PWd: 9.76 (7-11mm) LVDs: 30.22 (25-40mm) Left Atrium: 38.05 (27-40mm) Aortic Valve AoV Peak David.: 2.80 m/s AO Peak Gr.: 31.46 mmHg LVOT Max P.84 mmHg AO Mean Gr.: 17.39 mmHg AO V2 Mean: 2.00 m/s LVOT Max V: 0.98 m/s AO V2 VTI: 59.57 cm FABRIZIO Vmax: 1.23 cm2 Mitral Valve [facility] [address] [place] [address] 2 D/M-MODE ECHOCARDIOGRAM Name: DALTONKIRBY EUNICE Room #: 217-P [facility] IN [facility]#: [id number] Admission: 06/13/21 Attend Phys: Gilles aMlloy MD Discharge: Date of : 32 Report #: [id number] E/A Ratio: 0.7 MV Decel. Time: 212.31 ms MV E Max David.: 0.66 m/s MV A David.: 0.97 m/s MV PHT: 61.57 ms Pulmonary Valve PV Peak David.: 0.79 m/s PV Peak Gr.: 2.47 mmHg Tricuspid Valve TR Peak David.: 3.79 m/s TR Peak Gr.: 58.00 mmHg Left Ventricle The left ventricle is normal size. There is normal LV segmental wall motion. Mild basal septal hypertrophy is present. Left ventricular systolic function is normal. LVEF is 55%. Mild diastolic dysfunction is present (impaired relaxation pattern). Right Ventricle The right ventricle is normal size. The right ventricular systolic function is normal. Atria Left atrium is mildly dilated. The right atrium size is normal. Aortic Valve Aortic valve is moderately calcified. Trace aortic regurgitation. There is moderate valvular aortic stenosis. Calculated aortic valve area is 1.2 cm2 with maximum pressure gradient of 31 mmHg and mean pressure gradient of 17 mmHg. Mitral Valve The mitral valve is normal in structure. Mild mitral annular calcification. Moderate mitral regurgitation. Tricuspid Valve The tricuspid valve is normal in structure. Mild tricuspid regurgitation. Estimated PAP is 54 mmHg plus the RAP. Pulmonic Valve The pulmonary valve is normal in structure. Trace pulmonic regurgitation. Great Vessels [facility] [address] [place] [address] 2 D/M-MODE ECHOCARDIOGRAM Name: DALTONKIRBY DAWSON Room #: 217-P [facility] IN ..#: [id number] Admission: 06/13/21 Attend Phys: Gilles Malloy MD Discharge: Date of : 32 Report #: [id number] The aortic root is normal in size. IVC is not well visualized. Pericardium There is no pericardial effusion. <Conclusion> The left ventricle is normal size. Left ventricular systolic function is normal. Mild diastolic dysfunction is present (impaired relaxation pattern). The right ventricle is normal size. Left atrium is mildly dilated. There is moderate valvular aortic stenosis. Moderate mitral regurgitation. Mild tricuspid regurgitation. Estimated PAP is 54 mmHg plus the RAP. <ELECTRONICALLY SIGNED> By: Jeffery Young MD 06/18/21 1117 1117 1117 Jeffery Young MD /INF
[2021-06-18 11:55] VITALS: BP 153/71; BP 153/710
[2021-06-18 15:37] VITALS: BP 149/73
--- NOTE | 2021-06-18 17:05 | NUR ---
Updated [place] with clinical information faxed.
--- NOTE | 2021-06-18 18:36 | NUR ---
PATIENT ASSESMENTS COMPLETED. PATIENT ALTERED THROUGHOUT THE SHIFT BUT PROGRESSIVELY WORSE AND AGGRESSIVE. PATIENT BEGINNING TO YELL WHILE ALONE IN THE ROOM. HALDOL PRN ORDERED AND GIVEN ONCE.
[2021-06-18 19:39] VITALS: BP 175/69
[2021-06-19 03:31] VITALS: BP 159/80
--- NOTE | 2021-06-19 04:22 | NUR ---
PT A/O X1 AND IS ON BEDREST. PT IS CONFUSED AND IMPULSIVE WITH IV LINES AND RIVERA TUBING. PT HAS TAKEN OFF NC SEVERAL TIMES THROUGHOUT THE NIGHT. CONTINOUS PULSE OX IN PLACE FOR SAFETY. VSS. INCONTINENT OF STOOL. RIVERA IN PLACE DRAINING YELLOW URINE. MEDICATIONS GIVEN CRUSHED IN PUDDING. HONEY THICK LIQUIDS PROVIDED. FALL PRECAUTIONS IN PLACE, CALL LIGHT IS WITHIN REACH. PT IN ROOM NEAR NURSES STATION WITH FREQUENT CHECKS.
[2021-06-19 08:05] VITALS: BP 130/85
--- NOTE | 2021-06-19 10:33 | NUR ---
Nutrition: pt admitted with weakness, TAMELA. PMH: DM, HTN, PVD, CHF, CKD, aspiration PNA. ST follows-need for pureed with honey thick liquids diet PO < 50% of meals past few days but nsg reports pt ate 75% breakfast today. Main issue with pt removing 02, becomes hypoxic when removes. Is confused. No weight loss per hx. Prior UBW reported at 170#, current 182#. Has supplements ordered on trays: Ensure pudding/magic cups. Nsg reports pt likes these. Good intake of honey thick liquids. Place as low nutrition risk.
[2021-06-19 12:10] VITALS: BP 146/62
[2021-06-19 15:40] VITALS: BP 142/60
--- NOTE | 2021-06-19 17:23 | NUR ---
PATIENT ASSESMENTS COMPLETED. PATIENT CONFUSED TODAY, EATING WELL. PATIENT RIVERA CATHETER REMOVED.
--- NOTE | 2021-06-19 18:21 | NUR ---
Sent updates to [facility] anticipate no weekend discharge.
[2021-06-19 20:15] VITALS: BP 113/56
[2021-06-20 04:45] VITALS: BP 133/72; BP 157/83
[2021-06-20 07:43] VITALS: BP 156/81
[2021-06-20 11:39] VITALS: BP 144/75
[2021-06-20 16:24] VITALS: BP 158/90
[2021-06-20 20:02] VITALS: BP 147/79
--- NOTE | 2021-06-20 20:30 | NUR ---
PATIENT DOWNGRADED TO MEDSURG STATUS. REMIANS ONLY ORIENTED TO PERSON. HX DEMENTIA, CONFUSION. CALM AND NO SIGNS OF IMPULSIVENESS. ALL FALL PRECAUTIONS IN PLACE. APACED ON THE MONTIOR. DOPA CALLED FOR UPDATE, PROVIDED. ANSWERED ALL QUESTIONS. INCONTINENET OF BOWEL AND BLADDER. DOPA MENTIONED PLAN TO GO BACK TO [facility] WITH HOSPICE? [facility] FOLLOWING. WILL CONTINUE TO MONITOR
[2021-06-21 05:24] VITALS: BP 118/68
--- NOTE | 2021-06-21 05:54 | NUR ---
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
[2021-06-21 07:33] VITALS: BP 135/77
[2021-06-21 11:30] VITALS: BP 113/74
[2021-06-21 15:50] VITALS: BP 120/81
--- NOTE | 2021-06-21 17:45 | NUR ---
PATIENT ASSESMENTS COMPLETED. PATIENT NOT TALKATIVE TODAY HE HAS BEEN. PATIENT DPOA CALLED AND UPDATED.
[2021-06-21 19:35] VITALS: BP 131/64
--- NOTE | 2021-06-22 01:24 | NUR ---
PT RESTING QUIETLY IN BED TURNS SELF, REMAINS CONFUSED, HR AFIB TO VPACED,VSS, NO C/O PAIN WILL CON'T TO MONITOR PER PPOC.
[2021-06-22 05:43] VITALS: BP 137/68
[2021-06-22 08:10] VITALS: BP 117/65
[2021-06-22] MEDS ORDERED: AUGMENTIN 500-1 EACH PO (08:22)
[2021-06-22] MEDS ORDERED: CARDIZEM LA180 M1 PO (08:23)
[2021-06-22] MEDS ORDERED: SEROQUEL 25 MG25 M1 PO (08:29)
[2021-06-22 12:00] VITALS: BP 90/48
--- NOTE | 2021-06-22 14:24 | NUR ---
FAXED CLINICAL INFO. REQUESTED [facility] AND SUBMITTED FOR AUTH. THEY DID NOT SUBMIT FOR AUTH LAST WEEK D/T PT BEING ON 15 L O2. THERAPY EVALS NEED TO BE CURRENT TO RECIEVE SKILLED AUTH. UPDATE THERAPY AND LEFT MESSAGE FOR DPOA. CM FOLLOWING.
[2021-06-22 16:10] VITALS: BP 114/69
--- NOTE | 2021-06-22 19:44 | NUR ---
Pt has been lethagic and confused, VS stable and afebrile throughout shift. Plan was for discharge today; case management is working with pts insurance to [facility] discharge facility and level of care. Pt's lethargy and disinterested in eating and drinking was reported to MD; MD lowered seroquel dosage so that pt will be less lethargic. Pt continues to rest in bed. Current concerns: pt is not eating or drinking adequately. Continue to monitor.
[2021-06-22 20:00] VITALS: BP 137/78
[2021-06-23] VITALS: BP 124/58
--- NOTE | 2021-06-23 03:41 | NUR ---
PT IS ALERT TO SELF BUT OTHERWISE CONFUSED. LUNGS ARE DIMINISHED. ONN 3 LIERS NASAL CANULA.V-PACED ON THE MONITOR. HONEY THICKEN LIQUIDS AND CRUSH MEDS TO TAKE PILLS. SLEEPING DURING THE NIGHT. CALL LIGHT WITHIN REACH IF NEEDS ASISTANCE PER NURSING . INCONTINENT AND CLEANED UP. DENIES PAIN ISSUES.
[2021-06-23 04:00] VITALS: BP 126/69
[2021-06-23 08:00] VITALS: BP 146/70
[2021-06-23 11:50] VITALS: BP 122/52
[2021-06-23 15:30] VITALS: BP 118/61
--- NOTE | 2021-06-23 18:45 | NUR ---
Pt has been awake, alert, confused, forgetful and pleasant throughout shift; pt is oriented to self; VS stable and afebrile. Pt had episode of tachycardia - additional dose of diltiazem was given and pt HR has returned to 70s-90s. Speech Therapy worked with pt in AM and determined that he is okay to continue on current diet of pureed and honey thickened liquids - monitor closely and sit pt upright when eating or drinking. Pt is wanting to go home; waiting for insurance to approve [facility] facility. No current concerns. Continue to monitor.
[2021-06-23 19:37] VITALS: BP 105/57
--- NOTE | 2021-06-24 03:14 | NUR ---
PT IS ALERT TO SELF OTHERWISE CONFUSED. ON 5 LITERS NASAL CANULA. LUNGS ARE COARSE TO DIMIINSHED. COUGHING UP CRAWFORD SPUTUM NOTED. ON PUREE HONEY THICKEN DIET. PT IS INCONTINENT IN THE BED PER NURSING. DENIES ANY PAIN ISSUES NOTED.SLEEPING THROUGH THE NIGHT. CALL LIGHT WITHIN REACH IF NEEDS ASISTANCE.
[2021-06-24 04:55] VITALS: BP 121/70
[2021-06-24 07:50] VITALS: BP 131/60
[2021-06-24 12:00] VITALS: BP 128/53
--- NOTE | 2021-06-24 15:14 | NUR ---
Justin reports patient needs to participate in therapy to receive auth. Updated therapy notes faxed to [facility] for review. they did not receive fax so faxed again.
[2021-06-24 16:00] VITALS: BP 121/65
[2021-06-24 19:24] VITALS: BP 120/68
[2021-06-24 23:52] VITALS: BP 125/68
[2021-06-25 05:05] VITALS: BP 150/64
[2021-06-25 08:54] VITALS: BP 139/56
[2021-06-25 11:39] VITALS: BP 131/55
[2021-06-25 15:26] VITALS: BP 131/54
--- NOTE | 2021-06-25 16:38 | NUR ---
Cont to send updates to [facility] post acute care. Rec message from [facility] today at 1300 that Rosy TERRIE wants to return to Assisted living with [facility] hospice. justin reports onsite eval. Justin completed on site eval with nursing and patient with [address] [place] [address] Hospice present. Rec update from [facility] only one skilled bed left and requested orders for skilled to "ensure bed avail" [facility] reported have not spoke with TERRIE at this time for choice. Sp with TERRIE who was very upset. She report she rec a call from [facility] that patient would likely only have 10 days skilled. Then patient would have to transfer back to Assisted living with possible hospice. She reports she rec call from [facility] assisted living completing onsite eval. With onsite eval another hospice agency present then the one suggested to TERRIE prior. She reports the assisted living stated "it would be mean not to utilize skilled benefit for patient." ETRRIE reports she is so confused as to plan of care. she wants to sp with phys. reached out to phys plan of care meeting in am at 11:00
--- NOTE | 2021-06-25 16:52 | NUR ---
Pt has been awake, calm, cooperative and confused. VS stable and afebrile throughout shift. Pt status changed to med/surg. Pt worked with PT; pt refused to sit in chair and has been resting in bed. [employer] representative came to assess pt. Plan is for pt to be discharge to [facility] and then hospice if condition worsens. No concerns at this time. Will continue to monitor.
[2021-06-25 19:23] VITALS: BP 146/60
[2021-06-26 03:20] VITALS: BP 137/60
[2021-06-26 03:24] LABS: HEMATOCRIT 32.1 % (42.0-52.0); HEMOGLOBIN 10.4 gm/dL (14.0-18.0); MCH 31.5 pg (26.0-34.0); MCHC 32.3 g/dL (28.0-37.0); MCV 97.5 fL (80.0-100.0); RBC 3.29 mil/uL (4.50-6.00); RDW 14.8 % (10.5-14.5); WBC 14.3 thou/uL (4.0-11.0)
[2021-06-26 03:32] LABS: CALCIUM 8.9 mg/dL (8.5-10.1); CREATININE 4.4 mg/dL (0.7-1.3); POTASSIUM 3.7 mmol/L (3.5-5.1)
--- NOTE | 2021-06-26 03:32 | NUR ---
Assumed pt care at 1900. Pt is alert, confused. No sign of distress noted. Pt is stable. Assessment completed and documented. Denies pain. Scheduled meds administered to pt. No acute event through the night. Continue to monitor. No further needs at this time.
[2021-06-26 08:51] VITALS: BP 136/81
--- NOTE | 2021-06-26 11:02 | NUR ---
Assumed care of pt this AM. Pt is A&O x1, on 2L NC. No telemetry in place. Pt denies any pain. Pt very hard of hearing. Plan for hopeful discharge today & family meeting w/ provider. Frequent rounds in place.
[2021-06-26 13:50] VITALS: BP 136/81
--- NOTE | 2021-06-26 14:23 | NUR ---
Pt's dpoa/friend Rosy here this am and met with the attending. Pt confused. All in agreement for hospice eval and admit with [facility] care vs [facility]. Rosy indicates preference to use [facility]. Their liason met with her and pt at bedside this morning. Call placed to Luann the dir of [facility] at [place] and they can accept the pt back on hospice services and increase care so he can return to his apt. He will need a hospital bed and o2. [facility] has arranged delievery for this afternoon. [facility] to be arranged for pm transport. Hospice referral and dc orders faxed to [facility]. They can addmit him to service this evening and provide some continous care at the facility to help support the [facility]. All parties updated. Will confirm ambulance time once hospital bed has been delievered.
[2021-06-26 16:04] VITALS: BP 120/51
[2021-06-26 17:50] VITALS: BP 120/51
== END 2021-06-26 20:00 | disposition hospice, home (50) | DRG 871 ==
LOC: ER 17:30 → 4S 19:25 → EROBS 19:25 → 4S 20:46 → 2N 06-17 16:24
PROVIDERS: Emergency Medicine; Hospitalist; Internal Medicine; Nurse Practitioner Family; ADMIT Hospitalist; ATTEND Hospitalist
PROC: 5A0935A Assistance with Respiratory Ventilation, Less than 24 Consecutive Hours, High Flow/Velocity Cannula (ICD-10-PCS; principal; 2021-06-17)
PROC: 5A0935A Assistance with Respiratory Ventilation, Less than 24 Consecutive Hours, High Flow/Velocity Cannula (ICD-10-PCS; 2021-06-18)
PROC: 5A0945A Assistance with Respiratory Ventilation, 24-96 Consecutive Hours, High Flow/Velocity Cannula (ICD-10-PCS; 2021-06-21)
DX: A41.9 Sepsis, unspecified organism (principal); G92.8 Other toxic encephalopathy; J69.0 Pneumonitis due to inhalation of food and vomit; J96.01 Acute respiratory failure with hypoxia; N39.0 Urinary tract infection, site not specified; N17.9 Acute kidney failure, unspecified; I50.32 Chronic diastolic (congestive) heart failure; I13.0 Hypertensive heart and chronic kidney disease with heart failure and stage 1 through stage 4 chronic kidney disease, or unspecified chronic kidney disease; N18.30 Chronic kidney disease, stage 3 unspecified; I49.5 Sick sinus syndrome; D64.89 Other specified anemias; F03.90 Unspecified dementia, unspecified severity, without behavioral disturbance, psychotic disturbance, mood disturbance, and anxiety; Z20.822 Contact with and (suspected) exposure to COVID-19; E78.5 Hyperlipidemia, unspecified; G25.81 Restless legs syndrome; E78.00 Pure hypercholesterolemia, unspecified; E11.51 Type 2 diabetes mellitus with diabetic peripheral angiopathy without gangrene; E11.42 Type 2 diabetes mellitus with diabetic polyneuropathy; G47.33 Obstructive sleep apnea (adult) (pediatric); M10.9 Gout, unspecified; I48.0 Paroxysmal atrial fibrillation; K21.9 Gastro-esophageal reflux disease without esophagitis; R53.81 Other malaise; Z66 Do not resuscitate; R13.10 Dysphagia, unspecified; E11.22 Type 2 diabetes mellitus with diabetic chronic kidney disease; R63.4 Abnormal weight loss; Z68.22 Body mass index [BMI] 22.0-22.9, adult; Z51.5 Encounter for palliative care; Z98.42 Cataract extraction status, left eye; Z98.41 Cataract extraction status, right eye; Z95.0 Presence of cardiac pacemaker; Z87.891 Personal history of nicotine dependence; Z87.81 Personal history of (healed) traumatic fracture; Z71.6 Tobacco abuse counseling; Z79.82 Long term (current) use of aspirin; Z79.899 Other long term (current) drug therapy
CPT/HCPCS: 10081; 10100; 10797